=== PATIENT | male | born 1960 | race Caucasian/White ===

== ENCOUNTER 2024-07-17 17:10 | Inpatient (IN) | payer MEDICARE, SELFPAY ==
[2024-07-17 17:11] VITALS: BP 146/91; PULSE 90; RESP 18; TEMP 37.4; O2SAT 97
--- NOTE | 2024-07-17 18:06 | ED.C_ITS ---
HPI - Psych General: Chief Complaint: Psychiatric Symptoms Stated Complaint: 96 Hold Time Seen by Provider: 07/17/24 17:12 History of Present Illness: This patient is a 63-year-old white male who was brought in by law enforcement with a 96-hour hold. Patient is from [facility]. I did review the affidavits and the court order. There were several affidavits filled out from police officers who had been called several times for him disturbing the peace. He had been making strange statements. Stated frequently that he is the word of God. They have also noted strange behaviors such as him following children around and at 1 point he yelled at mother and her children as she was walking out of the court house. He has also been seen rolling around in a barrel. Patient states he is not suicidal or homicidal. Patient is not being cooperative. He will not allow his blood to be drawn. He is adamant that he wants to see the paperwork. We did provide him with the court order and the affidavits minus the names on the affidavits. Associated symptoms: Reports delusions Review of Systems General: Reports: ROS unobtainable due to mental status Physical Exam Const: COMMON NORMALS: no acute distress, patient oriented x3 and no limitations GENERAL APPEARANCE: comfortable HENMT: COMMON NORMALS: normocephalic, atraumatic and oropharynx normal HEAD & SCALP: normal to inspection, normocephalic and atraumatic FACE & SINUS: normal facial exam Eye: COMMON NORMALS: Equal, round and reactive pupils present, EOMs intact bilaterally and conjunctivae normal GENERAL EYE: appearance normal, both eyes and all related structures CONJUNCTIVA: Yes conjunctivae normal PUPIL: Yes Equal, round and reactive pupils present Neck/C-Spine: COMMON NORMALS: supple and no JVD Chest: COMMONS NORMALS: normal inspection of the chest Resp: COMMON NORMALS: normal respiratory effort and clear to auscultation bilaterally AUSCULTATION: clear to auscultation bilaterally Cardio: COMMON NORMALS: no JVD, regular rate, regular rhythm, No gallops present (Cardio), No murmurs present (Cardio) and No rub (Cardio) RATE: regular rate RHYTHM: regular rhythm GI: COMMON NORMALS: Normal to inspection, nondistended, normoactive bowel sounds present, Soft to palpation and non-tender AUSCULTATION: Yes normoactive bowel sounds PALPATION: Yes Soft to palpation : COMMON NORMALS: Yes no CVA tenderness BLADDER/KIDNEY EXAM: Yes no CVA tenderness Back/Pelvis: COMMON NORMALS: no CVA tenderness and thoracic and lumbar spine normal to inspection Extremity: COMMON NORMALS: normal to inspection Neuro: COMMON NORMALS: patient oriented x3 and CN's II-XII intact bilaterally Psych: COMMON NORMALS: mental status grossly normal and Normal thought process present ATTITUDE: Yes uncooperative ACTIVITY/MOTOR BEHAVIOR: Yes hyperactivity SPEECH: Yes excessive MOOD & AFFECT: Yes irritable THOUGHT PROCESS: Normal thought process present THOUGHT CONTENT: No Suicidality present, No Homicidality present and Yes delusions ATTENTION/CONCENTRATION: Yes attention grossly intact MEMORY/COGNITION: Yes memory grossly intact INSIGHT: Limited insight present (Psych) JUDGEMENT: Limited judgement present (Psych) Skin: COMMON NORMALS: no rashes or lesions noted, turgor normal and no jaundice GENERAL SKIN EXAM: no rashes or lesions noted and turgor normal Course Vital Signs: Vital signs: Vital Signs Temperature 99.3 F 07/17/24 17:11 Pulse Rate 90 07/17/24 17:11 Respiratory Rate 18 07/17/24 17:11 Blood Pressure 146/91 07/17/24 17:11 Pulse Oximetry 97 07/17/24 17:11 MDM - Psych Medical Decision Making I discussed this case with Dr. Soni, psychiatrist. He was okay with just admitting to the floor at this point and they can obtain the laboratory workup of therapy will not allow us to get the blood down here. Patient continues to refuse blood draw. Patient will be sent to the Neuropsych Unit shortly. He is stable. No radiology studies performed this visit Discharge Plan Discharge Patient Disposition: Admitted As Inpatient Clinical Impression: Acute psychosis Condition: Stable Coding Level of Care Code ED Housekeeping Aid for Hernesto Ram
[2024-07-17 18:07] LABS: Amphetamines Screen Urine Negative (Negative); Barbiturates Screen Urine Negative (Negative); Benzodiazepines Screen Urine Negative (Negative); Cocaine Screen Urine Negative (Negative); Opiate Screen Urine Negative (Negative); PCP Screen Urine Negative (Negative); THC Screen Urine Positive (Negative)
[2024-07-17 18:29] VITALS: BP 146/91; PULSE 90; O2SAT 97
--- NOTE | 2024-07-17 18:29 | PC.NURSE ---
THIS NURSE UNABLE TO ASSESS. PT REFUSING TO ANSWER QUESTIONS OR SPEAK TO NURSE.
--- NOTE | 2024-07-17 18:30 | PC.NURSE ---
PER DR. ESCOBAR PT TO COME TO UNIT WITHOUT LABS DRAWN.
[2024-07-17 18:50] VITALS: BP 126/81; PULSE 85; RESP 17; TEMP 36.5; O2SAT 96
[2024-07-17 19:59] VITALS: BP 136/80; PULSE 79; RESP 18; TEMP 36.4; O2SAT 98
[2024-07-18 04:12] VITALS: BP 117/64; PULSE 82; RESP 22; O2SAT 100
--- NOTE | 2024-07-18 07:56 | PC.NURSE ---
Morning assessment During morning assessment, patient denies Si, HI, AVH, depression, and anxiety. Patient's speech is pressured and rambling. Patient is exhibiting paranoia and muslim delusions. Patient says that he is going to change his name to The Word of God . He also referenced the show, The Big Bang Theory and when the girl sings The adrián song to Gino, purr purr purr can be spelled pir which is RIP backwards and PIR indicates that somebody is not really but that they are in the afterworld.
[2024-07-18 14:00] VITALS: BP 115/58; PULSE 100; RESP 18; TEMP 37; O2SAT 95
--- NOTE | 2024-07-18 14:55 | W.PM.NPUH&PS ---
Providers/Chief Complaint Admitting Physician: Grover Soni MD Chief Complaint: 96 Hold [facility] NPU History of Present Illness Ehsan Shaw is a 63 year old male who presented to the emergency department at [facility] brought in by law enforcement on a 96-hour hold with multiple affidavits filed in [facility]. These affidavits were reviewed by the contract technical writer of this note. Patient was admitted to the neuropsychiatric unit for further evaluation and treatment. The affidavits report that the patient is had numerous complaints against him regarding aggressive behavior towards children and various parents while reporting that he was the parent of all these children. He had also made a statement stating that he was the word of God and was God and flash on earth along with being the Holy Spirit and ghost. Furthermore, the patient had been disrupting others and was seen on video jumping and running into a barrel roll in the ground. The patient had apparently stated to others that they were not real and states to others that he is a God. Patient was a poor historian but stated that he was allergic to all antipsychotic medications and was here to write all of the wrongs committed against him. Patient had described having special zamarripa and abilities. He had refused to answer any questions regarding his past history or any previous hospitalizations. He had reported that he was working on a plan that would prove that he was God and had been searching through the the Bible while writing incessantly on paper. Psychiatric history: Unknown, he had reported having previously been on antipsychotics. Medical history: None reported Allergies: No known drug allergies Substance abuse history: None reported Legal history: Unknown history: None Current medications: None Family psychiatric history: Unknown Social history: He did not report being . He had refused answer any questions regarding whether he had children or where he was born. He had reported his previous whereabouts as being in [facility]. Meds NPU Home Medications ?Medication ?Instructions ?Recorded ?Confirmed ?Last Taken ?Type No Known Home Medications 07/17/24 07/17/24 Unknown History Mental Status Exam MSE Comments: Healthy young male with poor hygiene and normal gait with significant psychomotor agitation present. There is no evidence of any abnormal involuntary motor movements, tics, or tremors appreciated. His speech was steady with normal rate and volume and increase in productivity. His mood was described as great. His affect appeared euphoric and elevated. There was the presence of prolixity. He minimized suicidal or homicidal ideation. He was grandiose, with expansive delusions including believing he was God. He did not answer to his whereabouts, date, month or year. He did not appear to be responding to internal stimuli. Insight is impaired, Judgment impaired, Impulse control poor. Vitals/I&O/Wt Last Vital Signs Temp 98.6 F 07/18/24 14:00 Pulse 100 07/18/24 14:00 Resp 18 07/18/24 14:00 BP 115/58 07/18/24 14:00 Pulse Ox 95 07/18/24 14:00 O2 Del Method Room Air 07/17/24 18:51 A&P Assessment and plan (1) Acute psychosis: (2) Mojgan: Plan 63-year-old male presents with grandiosity and reported sleep disturbance with previous experience with antipsychotics currently refusing all medications and all labs as well. He will continue to require involuntary hospitalization with significant problems reported in his home environment according to multiple affidavits supporting need for treatment and evaluation. 1. Klonopin prn for sleep disturbance 2. Filed 21 day paperwork for extended stay today as patient will likely require forced medications and is refusing treatment at this time. 3. Haldol/zyprexa for agitation. 4. Consider [place] for mojgan. PDMP PDMP Reviewed: Not Reviewed Involuntary Hold Information Hold Status: Legal Status: 96 Hour Hold Date/Time Hold Expires: 07/23/24 @1712 Attestations NPU Medical Necessity Statement*: Inpatient hospitalization is medically necessary and deemed to ?be ?the clinically appropriate intervention ?at this time.? We will monitor/initiate medications and make changes as indicated.? The patient will be hospitalized for at least two midnights. The patient?s likely length of stay 7-10 days. Coding Level of Care Code Acute Code for Chg Fwd Diagnoses Acute psychosis F23 [place]jgan F30.9
[2024-07-18 20:27] VITALS: BP 104/64; PULSE 89; RESP 18; TEMP 36.7; O2SAT 97
--- NOTE | 2024-07-18 20:27 | PC.NURSE ---
Pt. just got off the phone with a police station stating he needed the police to come pick him up that has been placed on an illegal 96 hr hold and the [employer] band was part of this. Pt. is talking about Joey Galvan off of [address]. Pt. is not really making any since.
[2024-07-19 06:00] VITALS: BP 125/76; PULSE 74; RESP 19; TEMP 36.4; O2SAT 97
[2024-07-19 14:00] VITALS: BP 100/61; PULSE 85; RESP 18; TEMP 36.5; O2SAT 96
--- NOTE | 2024-07-19 14:26 | P.NPUPN_ITS ---
Subjective NPU Subjective: Patient presented today reporting that he is doing fine. He spent most of the time talking about very hyper islam subjects like him being God and having special abilities excetra. He was confused has to why he was still in the hospital and we discussed the importance of him taking medication to assist his condition which he denied having 1. So we spent the remainder of the time explaining the 21-day process of his ability to have an supervisor type bar and segment represent him and his 21-day hold hearing on Monday but he reported a plan to be his own [place]. You did not want to consider medications and denied any problems. Mental Status Exam 2 MSE Comments: This is an overweight versus obese white male in hospital scrubs with limited grooming and some eye contact. No abnormal movements except for mild psychomotor agitation. Cooperative with exam with mild to moderate distress. Speech was increased rate and volume. Mood described as fine affect irritable and agitated. Thought process linear but at times disorganized. Thought content: Patient denied suicidal or homicidal ideation, there were no delusions reported but clear attending to internal stimuli occurred, she exhibited paranoid, persecutory hyperreligious delusions, he denied auditory or visual hallucinations but indicated that there are ways that he obtain extra corporal voices and interactions. Attention and concentration were limited and memory appeared unreliable but none were formally tested. He is alert and oriented x 3. Insight, judgment and impulse control are all impaired. Vitals/I&O/Wt Last Vital Signs Temp 97.5 F L 07/19/24 06:00 Pulse 74 07/19/24 06:00 Resp 19 H 07/19/24 06:00 BP 125/76 07/19/24 06:00 Pulse Ox 97 07/19/24 06:00 O2 Del Method Room Air 07/19/24 06:00 A&P Assessment and plan (1) Acute psychosis: (2) Ruthy: Plan 63-year-old male presents with grandiosity and reported sleep disturbance with previous experience with antipsychotics currently refusing all medications and all labs as well. He will continue to require involuntary hospitalization with significant problems reported in his home environment according to multiple affidavits supporting need for treatment and evaluation. 1. Klonopin prn for sleep disturbance 2. Filed 21 day paperwork for extended stay today as patient will likely require forced medications and is refusing treatment at this time. 3. Haldol/zyprexa for agitation. 4. Consider [place] for ruthy. PDMP PDMP Reviewed: Not Reviewed Involuntary Hold Information Hold Status: Legal Status: 96 Hour Hold Date/Time Hold Expires: 07/23/24 1481 Attestations NPU Medical Necessity Statement*: Inpatient hospitalization is medically necessary and deemed to ?be ?the clinically appropriate intervention ?at this time.? We will monitor/initiate medications and make changes as indicated.? The patient will be hospitalized for at least two midnights. The patient?s likely length of stay 7-10 days. Coding Level of Care Code Acute Code for Chg Fwd Diagnoses Acute psychosis F23 Ruthy F30.9
--- NOTE | 2024-07-19 15:05 | PC.NURSE ---
Group Disruption Patient disruptive during 1400 group. Patient was interruptive, saying things that were inappropriate as well as triggering to other patients. Patient used the N word and referred to another patient as a crackhead .
--- NOTE | 2024-07-19 18:11 | PC.NURSE ---
Patient came to the nurses station with complaints of another patient invading his privacy. Patient's voice is raised. Patient demanding that staff keep him away from him. Redirected and educated second patient. Educated patient about his ability to walk away and also to go to his room.
[2024-07-19 21:52] VITALS: BP 121/65; PULSE 95; RESP 18; TEMP 36.7; O2SAT 96
[2024-07-20 06:00] VITALS: RESP 17
--- NOTE | 2024-07-20 08:51 | PC.NURSE ---
Morning assessment Cooperative during morning assessment. Patient calm and appropriate. Patient denies any needs besides wanting to be discharged from the unit.
[2024-07-20 14:00] VITALS: BP 109/64; PULSE 79; RESP 16; TEMP 36.8; O2SAT 96
[2024-07-20 21:15] VITALS: BP 102/66; PULSE 72; RESP 18; TEMP 36.3; O2SAT 98
--- NOTE | 2024-07-20 22:00 | P.NPUPN_ITS ---
Subjective NPU Subjective: Patient presented today reporting that he is doing fine but continued to have significant grandiose, hyperreligious, paranoid and persecutory delusions per staff reports and direct observation. He had written all these words on the chalk board and had delusions of reference related to things close and distant from him. He continued to lack insight and what was going on and review medications. We discussed him having a hearing on Monday and he reports a plan to represent himself. Mental Status Exam MSE Comments: This is an overweight versus obese white male in hospital scrubs with limited grooming and some eye contact. No abnormal movements except for mild psychomotor agitation. Cooperative with exam with mild to moderate distress. Speech was increased rate and volume. Mood described as fine affect irritable and agitated. Thought process linear but at times disorganized. Thought content: Patient denied suicidal or homicidal ideation, there were no delusions reported but clear attending to internal stimuli occurred, he exhibited paranoid, persecutory hyperreligious delusions, he denied auditory or visual hallucinations but indicated that there are ways that he obtain extra corporal voices and interactions. Attention and concentration were limited and memory appeared unreliable but none were formally tested. He is alert and oriented x 3. Insight, judgment and impulse control are all impaired. Vitals/I&O/Wt Last Vital Signs Temp 97.4 F L 07/20/24 21:15 Pulse 72 07/20/24 21:15 Resp 18 07/20/24 21:15 BP 102/66 07/20/24 21:15 Pulse Ox 98 07/20/24 21:15 O2 Del Method Room Air 07/20/24 21:15 Weight last 48 hrs Weight 105.8 kg A&P Assessment and plan (1) Acute psychosis: (2) Ruthy: Plan 63-year-old male presents with grandiosity and reported sleep disturbance with previous experience with antipsychotics currently refusing all medications and all labs as well. He will continue to require involuntary hospitalization with significant problems reported in his home environment according to multiple affidavits supporting need for treatment and evaluation. 1. Klonopin prn for sleep disturbance 2. Filed 21 day paperwork for extended stay today as patient will likely require forced medications and is refusing treatment at this time. 3. Haldol/zyprexa for agitation. 4. Consider [place] for ruthy. But likely will need either Invega or Abilify secondary to his resistance to treatment. It would be able to be placed on a long-acting injectable. PDMP PDMP Reviewed: Not Reviewed Involuntary Hold Information Hold Status: Legal Status: 96 Hour Hold Date/Time Hold Expires: 07/23/24 8543 Attestations NPU Medical Necessity Statement*: Inpatient hospitalization is medically necessary and?the clinically appropriate intervention at this time.? We will monitor/initiate medications and make changes as indicated.? The patient?s likely length of stay 7-10 days. Coding Level of Care Code Acute Code for Chg Fwd Diagnoses Acute psychosis F23 Ruthy F30.9
--- NOTE | 2024-07-21 06:31 | PC.NURSE ---
vs not completed per charge nurse resp 17
--- NOTE | 2024-07-21 08:23 | P.NPUPN_ITS ---
Subjective NPU Subjective: Patient presented today reporting that he is unhappy with the situation. Specifically he is feeling upset about the 21-day hold and denied there being any reason why he should still be here. When this promotion writer attempted to discuss his ID is/delusions of reference that he recounted on the chalk board he reported that this promotion writer was angry about the knowledge that he had that this promotion writer was not aware of. He argued about the date of the hearing. Then he actually asked that the hearing was going to be tomorrow and not Monday as he stated. We discussed him having an opportunity to express concerns about having to stay with the horticultural farmer who will decide whether he stays or goes. He refused antipsychotic medication. Mental Status Exam MSE Comments: This is an overweight versus obese white male in hospital scrubs with limited grooming and some eye contact. No abnormal movements except for mild psychomotor agitation. Cooperative with exam with mild to moderate distress. Speech was increased rate and volume. Mood described as fine affect irritable and agitated. Thought process linear but at times disorganized. Thought content: Patient denied suicidal or homicidal ideation, there were no delusions reported but clear attending to internal stimuli occurred, he exhibited paranoid, persecutory hyperreligious delusions, he denied auditory or visual hallucinations but indicated that there are ways that he obtain extra corporal voices and interactions. Attention and concentration were limited and memory appeared unreliable but none were formally tested. He is alert and oriented x 3. Insight, judgment and impulse control are all impaired. Vitals/I&O/Wt Last Vital Signs Temp 97.4 F L 07/20/24 21:15 Pulse 72 07/20/24 21:15 Resp 18 07/20/24 21:15 BP 102/66 07/20/24 21:15 Pulse Ox 98 07/20/24 21:15 O2 Del Method Room Air 07/20/24 21:15 Weight last 48 hrs Weight 105.8 kg A&P Assessment and plan (1) Acute psychosis: (2) Ruthy: Plan 63-year-old male presents with grandiosity and reported sleep disturbance with previous experience with antipsychotics currently refusing all medications and all labs as well. He will continue to require involuntary hospitalization with significant problems reported in his home environment according to multiple affidavits supporting need for treatment and evaluation. 1. Klonopin prn for sleep disturbance 2. Filed 21 day paperwork for extended stay today as patient will likely require forced medications and is refusing treatment at this time. 3. Haldol/zyprexa for agitation. 4. Consider [place] for ruthy. But likely will need either Invega or Abilify secondary to his resistance to treatment. It would be able to be placed on a long-acting injectable. PDMP PDMP Reviewed: Not Reviewed Involuntary Hold Information Hold Status: Legal Status: 96 Hour Hold Date/Time Hold Expires: 07/23/24 5833 Attestations NPU Medical Necessity Statement*: Inpatient hospitalization is medically necessary and?the clinically appropriate intervention at this time.? We will monitor/initiate medications and make changes as indicated.? The patient?s likely length of stay 7-10 days. Coding Level of Care Code Acute Code for Chg Fwd Diagnoses Acute psychosis F23 Ruthy F30.9
[2024-07-21 09:27] VITALS: BP 108/71; PULSE 87; RESP 16; TEMP 36.4; O2SAT 97
--- NOTE | 2024-07-21 12:17 | PC.NURSE ---
Dr. Hassan gave a v/o for pt to shave with supervision.
[2024-07-21 14:00] VITALS: BP 103/70; PULSE 87; RESP 16; TEMP 36.3; O2SAT 97
[2024-07-21 22:00] VITALS: BP 130/82; PULSE 83; RESP 18; TEMP 36.5; O2SAT 93
--- NOTE | 2024-07-22 06:40 | PC.NURSE ---
vs not completed per charge nurse resp 17
--- NOTE | 2024-07-22 09:13 | PC.NURSE ---
Pt states that he slept good last night. maintenance supervisor 2nd shift reports him only sleeping 2.5 hours. He is rating his anxiety and depression a 0/10. He denies SI or HI. He endorses hearing a train last night and he is hearing a clicking sound in a room that we currently have locked on the unit. I assured him that it was a vent clicking when the air is on and he does not accept this fact and thinks it is something else. He is to appear in [address]. He is reporting his back pain is a 2/10, it's just stiff and aching he says.
[2024-07-22 14:00] VITALS: BP 117/72; PULSE 94; RESP 17; TEMP 36.4; O2SAT 97
--- NOTE | 2024-07-22 18:05 | P.NPUPN_ITS ---
Subjective NPU Subjective: Patient presented today reporting that things are going okay. He is very upset and frustrated that this program writer proceeded forward with the 21-day hold hearing and that he was placed on continuous hold and not released pending the trial. He was reporting that this program writer was just mad because he is God and flesh and that he has special zamarripa. He continues to be quite irritable and appearing to be manic per staff reports and direct observation. He continued to endorse a significant frustration about being in the hospital and denied any need for medication and was refusing medication. Mental Status Exam MSE Comments: This is an overweight versus obese white male in hospital scrubs with limited grooming and some eye contact. No abnormal movements except for mild psychomotor agitation. Cooperative with exam with mild to moderate distress. Speech was increased rate and volume. Mood described as fine affect irritable and agitated. Thought process linear but at times disorganized. Thought content: Patient denied suicidal or homicidal ideation, there were no delusions reported but clear attending to internal stimuli occurred, he exhibited paranoid, persecutory hyperreligious delusions, he denied auditory or visual hallucinations but indicated that there are ways that he obtain extra corporal voices and interactions. Attention and concentration were limited and memory ap peared unreliable but none were formally tested. He is alert and oriented x 3. Insight, judgment and impulse control are all impaired. Vitals/I&O/Wt Last Vital Signs Temp 97.9 F 07/22/24 20:11 Pulse 98 07/22/24 20:11 Resp 16 07/22/24 20:11 BP 100/67 07/22/24 20:11 Pulse Ox 96 07/22/24 20:11 O2 Del Method Room Air 07/22/24 20:11 A&P Assessment and plan (1) Acute psychosis: (2) Ruthy: Plan 63-year-old male presents with grandiosity and reported sleep disturbance with previous experience with antipsychotics currently refusing all medications and all labs as well. He will continue to require involuntary hospitalization with significant problems reported in his home environment according to multiple affidavits supporting need for treatment and evaluation. 1. Klonopin prn for sleep disturbance 2. Filed 21 day paperwork for extended stay today as patient will likely require forced medications and is refusing treatment at this time. 3. Haldol/zyprexa for agitation. 4. Consider [place] for ruthy. But likely will need either Invega or Abilify secondary to his resistance to treatment. It would be able to be placed on a long-acting injectable. 5. He had his 21-day hold hearing and he was placed on a hold allowing for involuntary treatment but he demanded a jury trial and so that process is moving forward and likely will not happen till sometime next week at the earliest. Until then we have given permission to treat involuntarily and we will move forward with that tomorrow. PDMP PDMP Reviewed: Not Reviewed Involuntary Hold Information Hold Status: Legal Status: 96 Hour Hold Date/Time Hold Expires: 07/23/24 8892 Attestations NPU Medical Necessity Statement*: Inpatient hospitalization is medically necessary and?the clinically appropriate intervention at this time.? We will monitor/initiate medications and make changes as indicated.? The patient?s likely length of stay 7-10 days. Coding Level of Care Code Acute Code for Chg Fwd Diagnoses Acute psychosis F23 Ruthy F30.9
[2024-07-22 20:11] VITALS: BP 100/67; PULSE 98; RESP 16; TEMP 36.6; O2SAT 96
[2024-07-23 06:00] VITALS: BP 89/53; PULSE 78; RESP 18; TEMP 36.6; O2SAT 96
[2024-07-23 14:00] VITALS: PULSE 89; RESP 17; TEMP 36.8; O2SAT 96
--- NOTE | 2024-07-23 15:33 | PC.NURSE ---
Patient assessment completed at 1130. Patient denies SI/Hi/avh, anxiety and intrusive thoughts. He stated to this RN that he was dating Fide a cartoon character from the [employer]. He states that he dated the real character that the cartoon is based off of. We discuss goals and attending group. He states that the therapist embarassed him when he was wearing his underwear on his head because he identiified with spiderman. Social norms discussed and patient encouraged to attend group.
--- NOTE | 2024-07-23 15:40 | PC.NURSE ---
PATIENTS BLOOD PRESSURE DID NOT TAKE THE FIRST TIME, OFFERED TO DO IT IN HIS OTHER ARM AND HE REFUSED AND WOULD NOT LET THIS MONUMENTAL STONEMASON TAKE THE BLOOD PRESSURE. CHARGE NURSE NOTIFIED.
[2024-07-23] MEDS: ziprasidone 20 mg/mL SDV IM (15:58)
[2024-07-23] MEDS: water for injection-sterile 10 ML (15:59)
[2024-07-23] MEDS: ARIPiprazole 30 mg Tablet 15 MG PO (16:15)
--- NOTE | 2024-07-23 17:49 | P.NPUPN_ITS ---
Subjective NPU Subjective: Patient presented today reporting that he is fine and needs no medication. He initially refused medication and was going to getting injections from the forced medication protocol. But after he was informed that he would get a shot he changed his mind and took the Abilify 15 mg p.o. daily. He continued to report being allergic to all antipsychotics. He identified that it was Haldol and things that ended in done. Mental Status Exam MSE Comments: This is an overweight versus obese white male in hospital scrubs with limited grooming and some eye contact. No abnormal movements except for mild psychomotor agitation. Cooperative with exam with mild to moderate distress. Speech was increased rate and volume. Mood described as fine affect irritable and agitated. Thought process linear but at times disorganized. Thought content: Patient denied suicidal or homicidal ideation, there were no delusions reported but clear attending to internal stimuli occurred, he exhibited paranoi d, persecutory hyperreligious delusions, he denied auditory or visual hallucinations but indicated that there are ways that he obtain extra corporal voices and interactions. Attention and concentration were limited and memory appeared unreliable but none were formally tested. He is alert and oriented x 3. Insight, judgment and impulse control are all impaired. Vitals/I&O/Wt Last Vital Signs Temp 97.3 F L 07/23/24 22:00 Pulse 80 07/23/24 22:00 Resp 18 07/23/24 22:00 BP 122/79 07/23/24 22:00 Pulse Ox 96 07/23/24 22:00 O2 Del Method Room Air 07/23/24 06:00 A&P Assessment and plan (1) Acute psychosis: (2) Ruthy: Plan 63-year-old male presents with grandiosity and reported sleep disturbance with previous experience with antipsychotics currently refusing all medications and all labs as well. He will continue to require involuntary hospitalization with significant problems reported in his home environment according to multiple affidavits supporting need for treatment and evaluation. 1. Klonopin prn for sleep disturbance 2. Start forced medicine protocol will give 20 mg of Geodon IM for p.o. refusal of Invega 6 mg p.o. daily. Which was started today. 3. Haldol/zyprexa for agitation. 4. Consider [place] for ruthy. But likely will need either Invega or Abilify secondary to his resistance to treatment. It would be able to be placed on a long-acting injectable. 5. He had his 21-day hold hearing and he was placed on a hold allowing for involuntary treatment but he demanded a jury trial and so that process is moving forward and likely will not happen till sometime next week at the earliest. Until then we have given permission to treat involuntarily and we will move forward with that tomorrow. PDMP PDMP Reviewed: Not Reviewed Involuntary Hold Information Hold Status: Legal Status: 96 Hour Hold Date/Time Hold Expires: Court ordered administrative hold Attestations NPU Medical Necessity Statement*: Inpatient hospitalization is medically necessary and?the clinically appropriate intervention at this time.? We will monitor/initiate medications and make changes as indicated.? The patient?s likely length of stay 7-10 days. Coding Level of Care Code Acute Code for Chg Fwd Diagnoses Acute psychosis F23 Ruthy F30.9
[2024-07-23 22:00] VITALS: BP 122/79; PULSE 80; RESP 18; TEMP 36.3; O2SAT 96
[2024-07-24 06:00] VITALS: BP 105/58; PULSE 63; RESP 16; TEMP 36.9; O2SAT 97
[2024-07-24] MEDS: ARIPiprazole 30 mg Tablet 15 MG PO (09:02)
[2024-07-24 14:00] VITALS: BP 142/83; PULSE 77; RESP 16; TEMP 36.4; O2SAT 98
--- NOTE | 2024-07-24 18:30 | P.NPUPN_ITS ---
Subjective NPU Subjective: Patient presented today reporting that things were fine. He initially refused his Abilify this morning. We had a discussion about the fact that he is on forced medication protocol so if he does not take the Abilify we will give an injection. He ultimately took the Abilify and was given his second batch of information on the aripiprazole. He once again lobbied for us to prescribe him marijuana instead. No current reports of side effects. Mental Status Exam MSE Comments: This is an overweight versus obese white male in hospital scrubs with limited grooming and some eye contact. No abnormal movements except for mild psychomotor agitation. Cooperative with exam with mild to moderate distress. Speech was increased rate and volume. Mood described as fine affect irritable and agitated. Thought process linear but at times disorganized. Thought content: Patient denied suicidal or homicidal ideation, there were no delusions reported but clear attending to internal stimuli occurred, he exhibited paranoid, persecutory hyperreligious delusions, he denied auditory or visual hallucinations but indicated that there are ways that he obtain extra corporal voices and interactions. Attention and concentration were limited and memory appeared unreliable but none were formally tested. He is alert and oriented x 3. Insight, judgment and impulse control are all impaired. Vitals/I&O/Wt Last Vital Signs Temp 97.3 F L 07/24/24 21:08 Pulse 80 07/24/24 21:08 Resp 18 07/24/24 21:08 BP 109/70 07/24/24 21:08 Pulse Ox 96 07/24/24 21:08 O2 Del Method Room Air 07/24/24 21:08 A&P Assessment and plan (1) Acute psychosis: (2) Ruthy: Plan 63-year-old male presents with grandiosity and reported sleep disturbance with previous experience with antipsychotics currently refusing all medications and all labs as well. He will continue to require involuntary hospitalization with significant problems reported in his home environment according to multiple affidavits supporting need for treatment and evaluation. 1. Klonopin prn for sleep disturbance 2. Start forced medicine protocol will give 20 mg of Geodon IM for p.o. refusal of Abilify 15 mg p.o. daily. Which was started yesterday. 3. Haldol/zyprexa for agitation. 4. Consider [place] for ruthy. Abilify was started so he would be able to be placed on a long-acting injectable. And at that point with cooperation maybe add the lithium. 5. He had his 21-day hold hearing and he was placed on a hold allowing for involuntary treatment but he demanded a jury trial and so that process is moving forward and likely will not happen till sometime next week at the earliest. Until then we have given permission to treat involuntarily. PDMP PDMP Reviewed: Not Reviewed Involuntary Hold Information Hold Status: Legal Status: 96 Hour Hold Date/Time Hold Expires: Court ordered administrative hold Attestations NPU Medical Necessity Statement*: Inpatient hospitalization is medically necessary and?the clinically appropriate intervention at this time.? We will monitor/initiate medications and make changes as indicated.? The patient?s likely length of stay 7-10 days. Coding Level of Care Code Acute Code for Chg Fwd Diagnoses Acute psychosis F23 Ruthy F30.9
[2024-07-24 21:08] VITALS: BP 109/70; PULSE 80; RESP 18; TEMP 36.3; O2SAT 96
[2024-07-25 06:00] VITALS: BP 145/84; PULSE 74; RESP 118; TEMP 36.3; O2SAT 96
[2024-07-25 14:00] VITALS: BP 105/64; PULSE 69; RESP 16; TEMP 36.1; O2SAT 96
[2024-07-25] MEDS: ARIPiprazole 30 mg Tablet 15 MG PO (14:37)
--- NOTE | 2024-07-25 14:39 | PC.NURSE ---
Pt. refused am medication this am. asked signee to let pt. know that if he did not take the PO medication form that an injection would be the alternative. Pt. did comply at that time and took the PO form of medication .
--- NOTE | 2024-07-25 17:52 | W.PM.NPUPNS ---
Subjective NPU Subjective: Patient presented today reporting that he is fine. He continued the lobby to be discharged and continued his same rant that he is going to pray to God for forgiveness for this commercial underwriter for I know not what you do which is a statement he has made multiple times. We discussed that he is on a forced medication protocol and that if he refuses the medication he will get an injection. He did not report any side effects of the medication. He continues to be quite delusional per staff reports and direct observation. Mental Status Exam MSE Comments: This is an overweight versus obese white male in hospital scrubs with limited grooming and some eye contact. No abnormal movements except for mild psychomotor agitation. Cooperative with exam with mild to moderate distress. Speech was increased rate and volume. Mood described as fine affect irritable and agitated. Thought process linear but at times disorganized. Thought content: Patient denied suicidal or homicidal ideation, there were no delusions reported but clear attending to internal stimuli occurred, he exhibited paranoid, persecutory hyperreligious delusions, he denied auditory or visual hallucinations but indicated that there are ways that he obtain extra corporal voices and interactions. Attention and concentration were limited and memory appeared unreliable but none were formally tested. He is alert and oriented x 3. Insight, judgment and impulse control are all impaired. Vitals/I&O/Wt Last Vital Signs Temp 96.9 F L 07/25/24 14:00 Pulse 69 07/25/24 14:00 Resp 16 07/25/24 14:00 BP 105/64 07/25/24 14:00 Pulse Ox 96 07/25/24 14:00 O2 Del Method Room Air 07/25/24 06:00 A&P Assessment and plan (1) Acute psychosis: (2) Ruthy: Plan 63-year-old male presents with grandiosity and reported sleep disturbance with previous experience with antipsychotics currently refusing all medications and all labs as well. He will continue to require involuntary hospitalization with significant problems reported in his home environment according to multiple affidavits supporting need for treatment and evaluation. 1. Klonopin prn for sleep disturbance 2. Start forced medicine protocol will give 20 mg of Geodon IM for p.o. refusal of Abilify 15 mg p.o. daily. He continues to refuse his medication and need a second approach to get the pill taken. Starting tomorrow we will have an injection for p.o. refusal. 3. Haldol/zyprexa for agitation. 4. Consider [place] for ruthy. Abilify was started so he would be able to be placed on a long-acting injectable. And at that point with cooperation maybe add the lithium. 5. He had his 21-day hold hearing and he was placed on a hold allowing for involuntary treatment but he demanded a jury trial and so that process is moving forward and likely will not happen till sometime next week at the earliest. Until then we have given permission to treat involuntarily. Patient had a hearing that was at 11 AM today and in that hearing Fur Glosser Ivan resided and had to refuse herself because she is on the board of [facility] and so we will still be awaiting a logistics associate of being named and a jury being selected. PDMP PDMP Reviewed: Not Reviewed Involuntary Hold Information Hold Status: Legal Status: 96 Hour Hold Date/Time Hold Expires: Court ordered administrative hold Attestations NPU Medical Necessity Statement*: Inpatient hospitalization is medically necessary and?the clinically appropriate intervention at this time.? We will monitor/initiate medications and make changes as indicated.? The patient?s likely length of stay 7-10 days. Coding Level of Care Code Acute Code for [facility] Fwd Diagnoses Acute psychosis F23 Ruthy F30.9
[2024-07-25 20:39] VITALS: BP 113/66; PULSE 98; RESP 18; TEMP 36.3; O2SAT 96
[2024-07-26 06:00] VITALS: BP 97/61; PULSE 72; RESP 18; O2SAT 97
[2024-07-26 14:00] VITALS: BP 109/66; PULSE 72; RESP 16; TEMP 36.7; O2SAT 96
--- NOTE | 2024-07-26 14:47 | PC.NURSE ---
pulp mill team leader reported to staff that patient threw a sterling bag at her during group Discussed with patient and security. Patient states he was pullng weeds and then said heres a sterling bag and tossed an empty sterling bag at the leader. Discussed with patient that throwing of any items at staff is not tolerated and can be construed as viiolence.
--- NOTE | 2024-07-26 15:33 | P.NPUPN_ITS ---
Subjective NPU Subjective: Patient presented today reporting that he is feeling okay. He was less irritable and activated with his delusional thoughts per staff reports and direct observation. He reports feeling okay and again lobby for discharge sooner rather than later. He struggled with the question of whether he felt he was doing better because clearly acknowledging that would be acknowledging that something was available to be better about. He refused to acknowledge any improvement in his mentation though this was noted by both staff and this technical report writer. He denied any specific side effects to the medication though did note that during the time he has been taking the medication he has had a headache occasionally. Mental Status Exam MSE Comments: This is an overweight versus obese white male in hospital scrubs with limited grooming and some eye contact. No abnormal movements except for mild psychomotor agitation. Cooperative with exam with mild to moderate distress. Speech was increased rate and volume. Mood described as fine affect irritable and agitated. Thought process linear but at times disorganized. Thought content: Patient denied suicidal or homicidal ideation, there were no delusions reported but clear attending to internal stimuli occurred, he exhibited paranoid, persecutory hyperreligious delusions, he denied auditory or visual hallucinations but indicated that there are ways that he obtain extra corporal voices and interactions. Attention and concentration were limited and memory appeared unreliable but none were formally tested. He is alert and oriented x 3. Insight, judgment and impulse control are all impaired. Vitals/I&O/Wt Last Vital Signs Temp 97.4 F L 07/25/24 20:39 Pulse 72 07/26/24 06:00 Resp 18 07/26/24 06:00 BP 97/61 07/26/24 06:00 Pulse Ox 97 07/26/24 06:00 O2 Del Method Room Air 07/25/24 06:00 A&P Assessment and plan (1) Acute psychosis: (2) Ruthy: Plan 63-year-old male presents with grandiosity and reported sleep disturbance with previous experience with antipsychotics currently refusing all medications and all labs as well. He will continue to require involuntary hospitalization with significant problems reported in his home environment according to multiple affidavits supporting need for treatment and evaluation. 1. Klonopin prn for sleep disturbance 2. Start forced medicine protocol will give 20 mg of Geodon IM for p.o. refusal of Abilify 15 mg p.o. daily. He continues to refuse his medication and need a second approach to get the pill taken. Starting tomorrow we will have an injection for p.o. refusal. Will likely consider the Abilify Maintena in the next few days. 3. Haldol/zyprexa for agitation. 4. Consider [place] for ruthy. Abilify was started so he would be able to be placed on a long-acting injectable. And at that point with cooperation maybe add the lithium. 5. He had his 21-day hold hearing and he was placed on a hold allowing for involuntary treatment but he demanded a jury trial and so that process is moving forward and likely will not happen till sometime next week at the earliest. Until then we have given permission to treat involuntarily. Patient had a hearing that was at 11 AM today and in that hearing Kitchen Stewardess Ivan resided and had to refuse herself because she is on the board of [facility] and so we will still be awaiting a hose finisher of being named and a jury being selected. PDMP PDMP Reviewed: Not Reviewed Involuntary Hold Information Hold Status: Legal Status: 96 Hour Hold Date/Time Hold Expires: Court ordered administrative hold Attestations NPU Medical Necessity Statement*: Inpatient hospitalization is medically necessary and?the clinically appropriate intervention at this time.? We will monitor/initiate medications and make changes as indicated.? The patient?s likely length of stay 7-10 days. Coding Level of Care Code Acute Code for Chg Fwd Diagnoses Acute psychosis F23 Ruthy F30.9
[2024-07-26 20:25] VITALS: BP 100/64; PULSE 84; RESP 18; TEMP 36.9; O2SAT 96
--- NOTE | 2024-07-27 01:55 | PC.NURSE ---
Pt. just came up to the nurses station asking what the name of the little yellow bird on Cory Galicia's name was. Then pt. remembered the birds name was Noble. Pt. got a chocolate milk and went back to his room.
[2024-07-27 06:00] VITALS: BP 115/79; PULSE 65; RESP 18; O2SAT 96
[2024-07-27] MEDS: ARIPiprazole 30 mg Tablet 15 MG PO (08:58)
[2024-07-27 14:00] VITALS: BP 128/85; PULSE 104; RESP 18; TEMP 36.4; O2SAT 97
--- NOTE | 2024-07-27 19:05 | W.PM.NPUPNS ---
Subjective NPU Subjective: Patient presented today being a bit more vocal about his psychotic thinking than yesterday per staff reports and direct observation. He continues to be less irritable per staff reports and observation however he was very focused on him being a critical call given the christian reality. Endorsed himself is the second coming in saying that in true spiritism people should be done to twice the first time was for Ashish the second time was for him. He then went on a tangential rant about how the P that is in many different things is a call back to him. He denied any clear side effects to the medication. Mental Status Exam MSE Comments: This is an overweight versus obese white male in hospital scrubs with limited grooming and some eye contact. No abnormal movements except for mild psychomotor agitation. Cooperative with exam with mild to moderate distress. Speech was increased rate and volume. Mood described as fine affect irritable and agitated. Thought process linear but at times disorganized. Thought content: Patient denied suicidal or homicidal ideation, there were no delusions reported but clear attending to internal stimuli occurred, he exhibited paranoid, persecutory hyperreligious delusions, he denied auditory or visual hallucinations but indicated that there are ways that he obtain extra corporal voices and interactions. Attention and concentration were limited and memory appeared unreliable but none were formally tested. He is alert and oriented x 3. Insight, judgment and impulse control are all impaired. Vitals/I&O/Wt Last Vital Signs Temp 97.4 F L 07/27/24 19:23 Pulse 104 07/27/24 19:23 Resp 18 07/27/24 19:23 BP 137/79 07/27/24 19:23 Pulse Ox 97 07/27/24 19:23 O2 Del Method Room Air 07/26/24 20:25 Weight last 48 hrs Weight 107.275 kg A&P Assessment and plan (1) Acute psychosis: (2) Ruthy: Plan 63-year-old male presents with grandiosity and reported sleep disturbance with previous experience with antipsychotics currently refusing all medications and all labs as well. He will continue to require involuntary hospitalization with significant problems reported in his home environment according to multiple affidavits supporting need for treatment and evaluation. 1. Klonopin prn for sleep disturbance 2. Start forced medicine protocol will give 20 mg of Geodon IM for p.o. refusal of Abilify 15 mg p.o. daily. He continues to refuse his medication and need a second approach to get the pill taken. Starting tomorrow we will have an injection for p.o. refusal. Will likely consider the Abilify Maintena in the next few days. With signs of improvement we will consider giving Abilify [place] 400 mg IM tomorrow. 3. Haldol/zyprexa for agitation. 4. Consider [place] for ruthy. Abilify was started so he would be able to be placed on a long-acting injectable. And at that point with cooperation maybe add the lithium. 5. He had his 21-day hold hearing and he was placed on a hold allowing for involuntary treatment but he demanded a jury trial and so that process is moving forward and likely will not happen till sometime next week at the earliest. Until then we have given permission to treat involuntarily. Patient had a hearing that was at 11 AM today and in that hearing Education Counselor Ivan resided and had to refuse herself because she is on the board of [facility] and so we will still be awaiting a dental scheduling coordinator of being named and a jury being selected. PDMP PDMP Reviewed: Not Reviewed Involuntary Hold Information Hold Status: Legal Status: 96 Hour Hold Date/Time Hold Expires: Court ordered administrative hold Attestations NPU Medical Necessity Statement*: Inpatient hospitalization is medically necessary and?the clinically appropriate intervention at this time.? We will monitor/initiate medications and make changes as indicated.? The patient?s likely length of stay 6-9 days. Coding Level of Care Code Acute Code for [facility] Fwd Diagnoses Acute psychosis F23 Ruthy F30.9
[2024-07-27 19:23] VITALS: BP 137/79; PULSE 104; RESP 18; TEMP 36.3; O2SAT 97
--- NOTE | 2024-07-28 00:34 | PC.NURSE ---
asking staff about what dr. dahl first name and told staff that he know how works and then started rambling about how he was dressed when he came in to talk to other pts
--- NOTE | 2024-07-28 00:58 | PC.NURSE ---
pt just came to nurse station and told us that he need to speak with the intermint FITTER/WELDER at first day break didnt care if it was a monday or not. charge told him that she would pass it along to the next shift and he said okay and walked back down to the day room
[2024-07-28 05:37] VITALS: BP 109/64; PULSE 82; RESP 16; TEMP 36.5; O2SAT 96
[2024-07-28] MEDS: ARIPiprazole 30 mg Tablet 15 MG PO (08:56)
--- NOTE | 2024-07-28 10:44 | PC.NURSE ---
patient argumentative.
[2024-07-28 14:00] VITALS: BP 100/73; PULSE 84; RESP 16; TEMP 36.5; O2SAT 97
--- NOTE | 2024-07-28 15:51 | P.NPUPN_ITS ---
Subjective NPU Subjective: Patient presented today reporting that he is doing okay. He continues to take his Abilify without needing any urging. We discussed possibly increasing the medication but that we feel the medication has been helpful thus far. He continues to discuss hyperreligious and delusional content with the last persecutory nature per staff reports and direct observation. He continues to report being in the second coming of Ashish and even suggested that now when baptized and people they should be put under water once for Ashish and once for Ehsan/him. He denied any side effects of the medication today. Mental Status Exam MSE Comments: This is an overweight versus obese white male in hospital scrubs with limited grooming and some eye contact. No abnormal movements except for mild psychomotor agitation. Cooperative with exam with mild to moderate distress. Speech was increased rate and volume. Mood described as fine affect irritable and agitated. Thought process linear but at times disorganized. Thought content: Patient denied suicidal or homicidal ideation, there were no delusions reported but clear attending to internal stimuli occurred, he exhibited paranoid, persecutory hyperreligious delusions, he denied auditory or visual hallucinations but indicated that there are ways that he obtain extra corporal voices and interactions. Attention and concentration were limited and memory appeared unreliable but none were formally tested. He is alert and oriented x 3. Insight, judgment and impulse control are all impaired. Vitals/I&O/Wt Last Vital Signs Temp 97.7 F 07/28/24 14:00 Pulse 84 07/28/24 14:00 Resp 16 07/28/24 14:00 BP 100/73 07/28/24 14:00 Pulse Ox 97 07/28/24 14:00 O2 Del Method Room Air 07/28/24 14:00 Weight last 48 hrs Weight 107.275 kg A&P Assessment and plan (1) Acute psychosis: (2) Mojgan: Plan 63-year-old male presents with grandiosity and reported sleep disturbance with previous experience with antipsychotics currently refusing all medications and all labs as well. He will continue to require involuntary hospitalization with significant problems reported in his home environment according to multiple affidavits supporting need for treatment and evaluation. 1. Klonopin prn for sleep disturbance 2. Start forced medicine protocol will give 20 mg of Geodon IM for p.o. refusal of Abilify 15 mg p.o. daily. He continues to refuse his medication and need a s econd approach to get the pill taken. Starting tomorrow we will have an injection for p.o. refusal. Will likely consider the Abilify Maintena in the next few days. With signs of improvement we will consider giving Abilify Maintena 400 mg IM tomorrow. Increase Abilify to 20 mg p.o. daily. 3. Haldol/zyprexa for agitation. 4. Consider [place] for mojgan. Abilify was started so he would be able to be placed on a long-acting injectable. And at that point with cooperation maybe add the lithium. 5. He had his 21-day hold hearing and he was placed on a hold allowing for involuntary treatment but he demanded a jury trial and so that process is moving forward and likely will not happen till sometime next week at the earliest. Until then we have given permission to treat involuntarily. Patient had a hearing that was at 11 AM today and in that hearing Telemetry Technician Ivan resided and had to refuse herself because she is on the board of [facility] and so we will still be awaiting a sports activities foul judge of being named and a jury being selected. PDMP PDMP Reviewed: Not Reviewed Involuntary Hold Information Hold Status: Legal Status: 96 Hour Hold Date/Time Hold Expires: Court ordered administrative hold Attestations NPU Medical Necessity Statement*: Inpatient hospitalization is medically necessary and?the clinically appropriate intervention at this time.? We will monitor/initiate medications and make changes as indicated.? The patient?s likely length of stay 6-9 days. Coding Level of Care Code Acute Code for g Fwd Diagnoses Acute psychosis F23 Mojgan F30.9
[2024-07-28 20:42] VITALS: BP 129/71; PULSE 87; RESP 18; TEMP 36.6; O2SAT 93
[2024-07-29 06:00] VITALS: BP 107/63; PULSE 74; RESP 16; TEMP 36.7; O2SAT 97
--- NOTE | 2024-07-29 07:55 | P.NPUPN_ITS ---
Subjective NPU Subjective: Patient presented today reporting that he is doing okay. He continues to be very exuberant in his endorsing that he is the second coming and that he can be referred to in short hand as Ashish Saini. He continues to report that this is not a delusion but in fact true and is wanting to be discharged but thinks it is unfair that he is being kept for his caodaism conviction. We discussed the risks, benefits and alternatives of increasing his Abilify and discussed the likelihood of the long-acting injectable soon. He denied any side effects of the medication. Mental Status Exam MSE Comments: This is an overweight versus obese white male in hospital scrubs with limited grooming and some eye contact. No abnormal movements except for mild psychomotor agitation. Cooperative with exam with mild to moderate distress. Speech was increased rate and volume. Mood described as fine affect irritable and agitated. Thought process linear but at times disorganized. Thought content: Patient denied suicidal or homicidal ideation, there were no delusions reported but clear attending to internal stimuli occurred, he exhibited paranoid, persecutory hyperreligious delusions, he denied auditory or visual hallucinations but indicated that there are ways that he obtain extra corporal voices and interactions. Attention and concentration were limited and memory appeared unreliable but none were formally tested. He is alert and oriented x 3. Insight, judgment and impulse control are all impaired. Vitals/I&O/Wt Last Vital Signs Temp 98.0 F 07/29/24 06:00 Pulse 74 07/29/24 06:00 Resp 16 07/29/24 06:00 BP 107/63 07/29/24 06:00 Pulse Ox 97 07/29/24 06:00 O2 Del Method Room Air 07/28/24 14:00 Weight last 48 hrs Weight 107.275 kg A&P Assessment and plan (1) Acute psychosis: (2) Ruthy: Plan 63-year-old male presents with grandiosity and reported sleep disturbance with previous experience with antipsychotics currently refusing all medications and all labs as well. He will continue to require involuntary hospitalization with significant problems reported in his home environment according to multiple affidavits supporting need for treatment and evaluation. 1. Klonopin prn for sleep disturbance 2. Start forced medicine protocol will give 20 mg of Geodon IM for p.o. refusal of Abilify 15 mg p.o. daily. He continues to refuse his medication and need a second approach to get the pill taken. Starting tomorrow we will have an injection for p.o. refusal. Will likely consider the Abilify Maintena in the next few days. With signs of improvement we will consider giving Abilify Maintena 400 mg IM tomorrow. Increase Abilify to 20 mg p.o. daily. 3. Haldol/zyprexa for agitation. 4. Consider [place] for ruthy. Abilify was started so he would be able to be placed on a long-acting injectable. And at that point with cooperation maybe add the lithium. 5. He had his 21-day hold hearing and he was placed on a hold allowing for involuntary treatment but he demanded a jury trial and so that process is moving forward and likely will not happen till sometime next week at the earliest. Until then we have given permission to treat involuntarily. Patient had a hearing that was at 11 AM today and in that hearing Assistant Community Manager Ivan resided and had to refuse herself because she is on the board of [facility] and so we will still be awaiting a economic development director of being named and a jury being selected. PDMP PDMP Reviewed: Not Reviewed Involuntary Hold Information Hold Status: Legal Status: 96 Hour Hold Date/Time Hold Expires: Court ordered administrative hold Attestations NPU Medical Necessity Statement*: Inpatient hospitalization is medically necessary and?the clinically appropriate intervention at this time.? We will monitor/initiate medications and make changes as indicated.? The patient?s likely length of stay 6-9 days. Coding Level of Care Code Acute Code for [facility] [place] Fwd Diagnoses Acute psychosis F23 Ruthy F30.9
[2024-07-29] MEDS: ARIPiprazole 30 mg Tablet 15 MG PO (08:45)
[2024-07-29 14:00] VITALS: BP 113/73; PULSE 85; RESP 17; TEMP 36.7; O2SAT 95
[2024-07-29 20:00] VITALS: BP 115/66; PULSE 75; RESP 18; TEMP 37; O2SAT 99
[2024-07-30 06:00] VITALS: BP 109/64; PULSE 82; RESP 18; TEMP 36.9; O2SAT 99
[2024-07-30] MEDS: ARIPiprazole 30 mg Tablet PO (11:39)
--- NOTE | 2024-07-30 12:12 | PC.NURSE ---
Patient refused morning dose of 20 mg PO Abilify. notified. New verbal order received for Geodon IM [address] Hassan and RN supervisor game farm visited with the patient to discuss medication options. New verbal order received for Abilify 30 mg PO daily starting today. Patient was cooperative and took the 30 mg PO Abilify. IM Geodon was not administered.
[2024-07-30 14:00] VITALS: BP 109/66; PULSE 81; RESP 18; TEMP 36.6; O2SAT 97
--- NOTE | 2024-07-30 18:20 | P.NPUPN_ITS ---
Subjective NPU Subjective: Patient presents today reporting that he is doing okay. After having days where he was taking the medication as requested he refused his medication because he did not want there to be an increase. He was reporting he did not want increase the medication from 15 to 20 mg but we discussed with his continued delusional thinking that would be appropriate. He then said that he wanted to switch to Invega but then when he read the information on Invega and saw that it ended in ONE he reported that he would take the Abilify and reported that he would be fine increasing it to 30 mg. As we had discussed that being the likely target dose. So we discussed the risk benefits and alternatives of switching to 30 mg versus 20 mg and he understood and agreed to proceed as is documented in this note. We discussed the fact that there could be a hard transition making that change more quickly but he said that if we switch that the 30 mg he would take it. He denied any side effects of medication but did report having some difficulty with headaches and not feeling he should be on the medication anyway. Brought up cannabis again. Mental Status Exam MSE Comments: This is an overweight versus obese white male in hospital scrubs with limited grooming and some eye contact. No abnormal movements except for mild psychomotor agitation. Cooperative with exam with mild to moderate distress. S peech was increased rate and volume. Mood described as fine affect irritable and agitated. Thought process linear but at times disorganized. Thought content: Patient denied suicidal or homicidal ideation, there were no delusions reported but clear attending to internal stimuli occurred, he exhibited paranoid, persecutory hyperreligious delusions, he denied auditory or visual hallucinations but indicated that there are ways that he obtain extra corporal voices and interactions. Attention and concentration were limited and memory appeared unreliable but none were formally tested. He is alert and oriented x 3. Insight, judgment and impulse control are all impaired. Vitals/I&O/Wt Last Vital Signs Temp 98 F 07/30/24 14:00 Pulse 81 07/30/24 14:00 Resp 18 07/30/24 14:00 BP 109/66 07/30/24 14:00 Pulse Ox 97 07/30/24 14:00 O2 Del Method Room Air 07/30/24 14:00 A&P Assessment and plan (1) Acute psychosis: (2) Ruthy: Plan 63-year-old male presents with grandiosity and reported sleep disturbance with previous experience with antipsychotics currently refusing all medications and all labs as well. He will continue to require involuntary hospitalization with significant problems reported in his home environment according to multiple affidavits supporting need for treatment and evaluation. 1. Klonopin prn for sleep disturbance 2. Start forced medicine protocol will give 20 mg of Geodon IM for p.o. refusal of Abilify 15 mg p.o. daily. He continues to refuse his medication and need a second approach to get the pill taken. Starting tomorrow we will have an injection for p.o. refusal. Will likely consider the Abilify Maintena in the next few days. With signs of improvement we will consider giving Abilify Maintena 400 mg IM tomorrow. Increased Abilify to 30 mg p.o. daily. 3. Haldol/zyprexa for agitation. 4. Consider [place] for ruthy. Abilify was started so he would be able to be placed on a long-acting injectable. And at that point with cooperation maybe add the lithium. 5. He had his 21-day hold hearing and he was placed on a hold allowing for involuntary treatment but he demanded a jury trial and so that process is moving forward and likely will not happen till sometime next week at the earliest. Until then we have given permission to treat involuntarily. Patient had a hearing that was at 11 AM today and in that hearing Telecommunication Lines Repairer Ivan resided and had to refuse herself because she is on the board of [facility] and so we will still be awaiting a pay clerk of being named and a jury being selected. PDMP PDMP Reviewed: Not Reviewed Involuntary Hold Information Hold Status: Legal Status: 96 Hour Hold Date/Time Hold Expires: Court ordered administrative hold Attestations NPU Medical Necessity Statement*: Inpatient hospitalization is medically necessary and?the clinically appropriate intervention at this time.? We will monitor/initiate medications and make changes as indicated.? The patient?s likely length of stay 6-9 days. Coding Level of Care Code Acute Code for [facility] Fwd Diagnoses Acute psychosis F23 Ruthy F30.9
[2024-07-30 22:00] VITALS: BP 85/56; PULSE 86; RESP 18; TEMP 36.7; O2SAT 95
--- NOTE | 2024-07-31 02:22 | PC.NURSE ---
Addendum entered by Reilly Álvarez RN 07/31/24 05:13: Patient is also attributing the Abilify to an inability to get a urine stream started. Original Note: Patient came to nurses station at 02:18 loudly C/O leg cramps and head ache that he feels are reactions / side affects of his current medication (Abilify). He stated he was not going to take any more Abilify, but would conceder Invega.
--- NOTE | 2024-07-31 05:16 | PC.NURSE ---
Patient has requested a Complaint packet from the federal court house in [facility] to aid him his pursuit / intention to litigate against the facility. He feels that he should have received this material already as he requested it a full week ago. He is requesting that staff look into the whereabouts of this ordered material. The patient disagrees with the treating provider and multiple accusations in regard to him calming that the patient has been calming that he is God . The patient adamantly denies these accusations and also the provider speaking with staff about his care / situation.
[2024-07-31 06:00] VITALS: RESP 18
--- NOTE | 2024-07-31 06:22 | PC.NURSE ---
vs not collected pt ref resp 18 charge notified
[2024-07-31 09:30] VITALS: BP 109/61; PULSE 83; RESP 18; TEMP 36.6; O2SAT 98
[2024-07-31] MEDS: ARIPiprazole 10 mg Tablet 20 MG PO (09:37)
[2024-07-31 14:00] VITALS: RESP 18
--- NOTE | 2024-07-31 14:51 | PC.NURSE ---
pt refused vital signs.
--- NOTE | 2024-07-31 16:50 | W.PM.NPUPNS ---
Subjective NPU Subjective: Patient presented today reporting that he is doing okay. He reports he did not like taking the 30 mg of Abilify. We discussed the fact that I had discussed with him that the increase to 20 mg would have been more reasonable but he was uncomfortable with the pill form with her taking 2 pills. So we discussed the risks, benefits and alternatives of returning back to 20 mg p.o. daily of the Abilify and he had lobbied to have 15 but we discussed the fact that he continued to be symptomatic with his delusions and that we needed to increase the medication. He denied anything other than reports of feeling funny on the medication. He did report however that he would not take the Invega because it was paliperidone. And he identified that that would kill him. Because that is Pali Leatha (Ehsan) done. So Ehsan done. Mental Status Exam MSE Comments: This is an overweight versus obese white male in hospital scrubs with limited grooming and some eye contact. No abnormal movements except for mild psychomotor agitation. Cooperative with exam with mild to moderate distress. Speech was increased rate and volume. Mood described as not happy about having to take the medication affect irritable and agitated. Thought process linear but at times disorganized. Thought content: Patient denied suicidal or homicidal ideation, there were no delusions reported but clear attending to internal stimuli occurred, he exhibited paranoid, persecutory hyperreligious delusions, he denied auditory or visual hallucinations but indicated that there are ways that he obtain extra corporal voices and interactions. Attention and concentration were limited and memory appeared unreliable but none were formally tested. He is alert and oriented x 3. Insight, judgment and impulse control are all impaired. Vitals/I&O/Wt Last Vital Signs Temp 98 F 07/31/24 09:30 Pulse 83 07/31/24 09:30 Resp 18 07/31/24 14:00 BP 109/61 07/31/24 09:30 Pulse Ox 98 07/31/24 09:30 O2 Del Method Room Air 07/31/24 09:30 A&P Assessment and plan (1) Acute psychosis: (2) Mojgan: Plan 63-year-old male presents with grandiosity and reported sleep disturbance with previous experience with antipsychotics currently refusing all medications and all labs as well. He will continue to require involuntary hospitalization with significant problems reported in his home environment according to multiple affidavits supporting need for treatment and evaluation. 1. Klonopin prn for sleep disturbance 2. Start forced medicine protocol will give 20 mg of Geodon IM for p.o. refusal of Abilify 15 mg p.o. daily. He continues to refuse his medication and need a second approach to get the pill taken. Starting tomorrow we will have an injection for p.o. refusal. Will likely consider the Abilify Maintena in the next few days. With signs of improvement we will consider giving Abilify Maintena 400 mg IM tomorrow. Increased Abilify to 30 mg p.o. daily. Patient wanting to return to the 20 mg saying the 30 mg is too much and we discussed that I had suggested that he take the slower route. 3. Haldol/zyprexa for agitation. 4. Consider [place] for mojgan. Abilify was started so he would be able to be placed on a long-acting injectable. And at that point with cooperation maybe add the lithium. 5. He had his 21-day hold hearing and he was placed on a hold allowing for involuntary treatment but he demanded a jury trial and so that process is moving forward and likely will not happen till sometime next week at the earliest. Until then we have given permission to treat involuntarily. Patient had a hearing that was at 11 AM today and in that hearing Production Welding Supervisor Ivan resided and had to refuse herself because she is on the board of [facility] and so we will still be awaiting a vulcanizing machine operator of being named and a jury being selected. PDMP PDMP Reviewed: Not Reviewed Involuntary Hold Information Hold Status: Legal Status: 96 Hour Hold Date/Time Hold Expires: Court ordered administrative hold Attestations NPU Medical Necessity Statement*: Inpatient hospitalization is medically necessary and?the clinically appropriate intervention at this time.? We will monitor/initiate medications and make changes as indicated.? The patient?s likely length of stay 6-9 days. Coding Level of Care Code Acute Code for Chg Fwd Diagnoses Acute psychosis F23 Mojgan F30.9
--- NOTE | 2024-07-31 22:14 | PC.NURSE ---
pt refused vs, charge nurse notified
--- NOTE | 2024-08-01 00:36 | PC.NURSE ---
At 11:45pm this fha underwriter was doing rounding and the patient's door did not remain shut after closing. Patient proceeded to come up to the nurses station and question this fha underwriter about pushing the door open , and claimed loudly You woke me up now I'm up and you guys have to deal with that. You're all just 007 (double o seven), and 666 in here anyways . Patient proceeded to ask for prune juice and sit in the day room
--- NOTE | 2024-08-01 08:43 | PC.NURSE ---
Pt on phone at nurses station, unknown who is speaking with. He stated that, no one should have control over someone else's body He also stated, If they force me to get a shot someone is going to get a knuckle sandwich. His conversation carried on for approx another 3 min before ending.
--- NOTE | 2024-08-01 13:17 | W.PM.NPUPNS ---
Subjective NPU Subjective: Patient presented today reporting that he does not feel he is doing well because he is here. He had refused his Abilify this morning and then tried to backtrack and take it after taking the nurse for a long circuitous route ultimately he was given the injection for refusal and during this exchange he became very agitated very aggressive screaming expletives and ultimately calling this telegraphic typewriter operator a nigjair. He later reported that the medication that he got i.e. the Geodon was very helpful and it helped him come to an epiphany about the fact that he has been holding things in and that in fact his worry has been all along that his children might have been killed secondary to him being who he is in so he wants to this telegraphic typewriter operator and staff to do some investigating to find out of his children are alive. He told this story quite tearfully. Mental Status Exam MSE Comments: This is an overweight versus obese white male in hospital scrubs with limited grooming and some eye contact. No abnormal movements except for moments of extreme psychomotor agitation. Cooperative with exam with mild but at times extreme distress. Speech was increased rate and volume. Mood described as pissed off, affect irritable and agitated. Thought process linear but at times disorganized. Thought content: Patient denied suicidal or homicidal ideation but was making threats to this telegraphic typewriter operator and staff upon receiving the injection, there were no delusions reported but clear attending to internal stimuli occurred, he exhibited paranoid, persecutory hyperreligious delusions, he denied auditory or visual hallucinations but indicated that there are ways that he obtain extra corporal voices and interactions. Attention and concentration were limited and memory appeared unreliable but none were formally tested. He is alert and oriented x 3. Insight, judgment and impulse control are all impaired. Vitals/I&O/Wt Last Vital Signs Temp 98 F 07/31/24 09:30 Pulse 83 07/31/24 09:30 Resp 18 07/31/24 14:00 BP 109/61 07/31/24 09:30 Pulse Ox 98 07/31/24 09:30 O2 Del Method Room Air 07/31/24 09:30 A&P Assessment and plan (1) Acute psychosis: (2) Ruthy: Plan 63-year-old male presents with grandiosity and reported sleep disturbance with previous experience with antipsychotics currently refusing all medications and all labs as well. He will continue to require involuntary hospitalization with significant problems reported in his home environment according to multiple affidavits supporting need for treatment and evaluation. 1. Klonopin prn for sleep disturbance 2. Start forced medicine protocol will give 20 mg of Geodon IM for p.o. refusal of Abilify 15 mg p.o. daily. He continues to refuse his medication and need a second approach to get the pill taken. Starting tomorrow we will have an injection for p.o. refusal. Will likely consider the Abilify Maintena in the next few days. With signs of improvement we will consider giving Abilify Maintena 400 mg IM tomorrow. Increased Abilify to 30 mg p.o. daily. Patient refused his Abilify and received the Geodon injection. He later reported that he felt much calmer after that and suggested the possibility of getting that medication tomorrow even possibly an injection. 3. Haldol/zyprexa for agitation. 4. Consider [place] for ruthy. Abilify was started so he would be able to be placed on a long-acting injectable. And at that point with cooperation maybe add the lithium. 5. He had his 21-day hold hearing and he was placed on a hold allowing for involuntary treatment but he demanded a jury trial and so that process is moving forward and likely will not happen till sometime next week at the earliest. Until then we have given permission to treat involuntarily. Patient had a hearing that was at 11 AM today and in that hearing Underground Mine Superintendent Ivan resided and had to refuse herself because she is on the board of [facility] and so we will still be awaiting a hot iron worker of being named and a jury being selected. PDMP PDMP Reviewed: Not Reviewed Involuntary Hold Information Hold Status: Legal Status: 96 Hour Hold Date/Time Hold Expires: Court ordered administrative hold Attestations NPU Medical Necessity Statement*: Inpatient hospitalization is medically necessary and?the clinically appropriate intervention at this time.? We will monitor/initiate medications and make changes as indicated.? The patient?s likely length of stay 6-9 days. Coding Level of Care Code Acute Code for Chg Fwd Diagnoses Acute psychosis F23 Ruthy F30.9
[2024-08-01] MEDS: benztropine 1 mg/mL SDV 2 mL IM (13:19)
[2024-08-01] MEDS: ziprasidone 20 mg/mL SDV IM (13:19)
[2024-08-01] MEDS: water for injection-sterile 10 ML (13:21)
[2024-08-01 14:00] VITALS: BP 92/58; PULSE 90; RESP 18; TEMP 36.6; O2SAT 97
[2024-08-01 20:10] VITALS: BP 128/76; PULSE 87; RESP 18; TEMP 37.2; O2SAT 96
--- NOTE | 2024-08-02 03:59 | PC.NURSE ---
when doing 0345 rounds pt was sitting on side of bed and asked me to come in to room and talk with him for a few mins. i went in and he wanted to let me know that he want to take the shot they gave me yesterday, it made me feel better .
[2024-08-02 06:00] VITALS: BP 133/88; PULSE 71; RESP 18; TEMP 37.2; O2SAT 97
--- NOTE | 2024-08-02 08:54 | P.NPUPN_ITS ---
Subjective NPU Subjective: Patient presented today reporting that things were going okay. He reports that the Geodon seems to help him relax. We discussed having some concerns about the Geodon because there is no way to give a long-acting injectable in his commitment to taking medication is limited. However we may choose to give him the Geodon and then give a small dose of Abilify as an underlying medication. But this is something we will have to figure out along the way given his continued delusional thinking. We discussed the risks, benefits and alternatives of starting Geodon 20 mg in the morning and 40 mg in the afternoon as a starting spot and he understood and agreed to proceed as documented in this note. Mental Status Exam MSE Comments: This is an overweight versus obese white male in hospital scrubs with limited grooming and some eye contact. No abnormal movements except for moments of extreme psychomotor agitation. Cooperative with exam with mild but at times extreme distress. Speech was increased rate and volume. Mood described as pissed off, affect irritable and agitated. Thought process linear but at times disorganized. Thought content: Patient denied suicidal or homicidal ideation but was making threats to this script writer and staff upon receiving the injection, there were no delusions reported but clear attending to internal stimuli occurred, he exhibited paranoid, persecutory hyperreligious delusions, he denied auditory or visual hallucinations but indicated that there are ways that he obtain extra corporal voices and interactions. Attention and concentration were limited and memory appeared unreliable but none were formally tested. He is alert and oriented x 3. Insight, judgment and impulse control are all impaired. Vitals/I&O/Wt Last Vital Signs Temp 98.9 F 08/02/24 06:00 Pulse 71 08/02/24 06:00 Resp 18 08/02/24 06:00 BP 133/88 08/02/24 06:00 Pulse Ox 97 08/02/24 06:00 O2 Del Method Room Air 07/31/24 09:30 A&P Assessment and plan (1) Acute psychosis: (2) Ruthy: Plan 63-year-old male presents with grandiosity and reported sleep disturbance with previous experience with antipsychotics currently refusing all medications and all labs as well. He will continue to require involuntary hospitalization with significant problems reported in his home environment according to multiple affidavits supporting need for treatment and evaluation. 1. Klonopin prn for sleep disturbance 2. Start forced medicine protocol will give 20 mg of Geodon IM for p.o. refusal of Abilify 15 mg p.o. daily. He continues to refuse his medication and need a second approach to get the pill taken. Starting tomorrow we will have an injection for p.o. refusal. Will likely consider the Abilify Maintena in the next few days. With signs of improvement we will consider giving Abilify Maintena 400 mg IM tomorrow. Increased Abilify to 30 mg p.o. daily. Patient refused his Abilify and received the Geodon injection. He later reported that he felt much calmer after that and suggested the possibility of getting that medication tomorrow even possibly an injection. Will give him Geodon 20 mg in the morning and 40 mg in the evening tomorrow and see how things go. 3. Haldol/zyprexa for agitation. 4. Consider [place] for ruthy. Abilify was started so he would be able to be placed on a long-acting injectable. And at that point with cooperation maybe add the lithium. 5. He had his 21-day hold hearing and he was placed on a hold allowing for involuntary treatment but he demanded a jury trial and so that process is moving forward and likely will not happen till sometime next week at the earliest. Until then we have given permission to treat involuntarily. Patient had a hearing that was at 11 AM today and in that hearing Rn Anesthesiology Ivan resided and had to refuse herself because she is on the board of [facility] and so we will still be awaiting a environmental conflict manager of being named and a jury being selected. PDMP PDMP Reviewed: Not Reviewed Involuntary Hold Information Hold Status: Legal Status: 96 Hour Hold Date/Time Hold Expires: Court ordered administrative hold Attestations NPU Medical Necessity Statement*: Inpatient hospitalization is medically necessary and?the clinically appropriate intervention at this time.? We will monitor/initiate medications and make changes as indicated.? The patient?s likely length of stay 6-9 days. Coding Level of Care Code Acute Code for Chg Fwd Diagnoses Acute psychosis F23 Ruthy F30.9
[2024-08-02] MEDS: ziprasidone 20 mg/mL SDV IM (09:32)
[2024-08-02] MEDS: water for injection-sterile 10 ML (09:33)
[2024-08-02] MEDS: benztropine 1 mg/mL SDV 2 mL IM (09:33)
[2024-08-02 14:00] VITALS: BP 113/75; PULSE 92; RESP 18; TEMP 36.6; O2SAT 96
[2024-08-02] MEDS: capsaicin 0.025% cream 60 gm 1 APPLIC TOPICAL (16:31)
[2024-08-02 19:58] VITALS: BP 128/77; PULSE 87; RESP 20; TEMP 36.4; O2SAT 98
[2024-08-03 06:00] VITALS: RESP 16
[2024-08-03] MEDS: benztropine 1 mg Tablet PO ×2 (10:22→18:22)
[2024-08-03] MEDS: ziprasidone hcl 20 mg Capsule PO ×2 (10:22→17:49)
--- NOTE | 2024-08-03 11:00 | PC.NURSE ---
Pt was questioning the new order for the Abilify 10mg. Spoke with Dr. Hassan and he was okay with him not taking it as long as he took the Geosam PO.
--- NOTE | 2024-08-03 11:25 | P.NPUPN_ITS ---
Subjective NPU Subjective: Patient presented today reporting that things are going all right. He took the Geodon 20 mg in the morning and 40 mg in the evening without difficulty. He reports that he does feel a bit clearer on this medication. We discussed the fact that we need to see him making improvements in his delusional thinking before discharge will occur but explained that Dr. Soni will be here tomorrow making decisions about things going forward. Mental Status Exam MSE Comments: This is an overweight versus obese white male in hospital scrubs with limited grooming and some eye contact. No abnormal movements except for mild psychomotor retardation. Cooperative with exam with mild distress. Speech was more normal rate and volume. Mood described as calmer, affect irritable and agitated. Thought process linear but at times disorganized. Thought content: Patient denied suicidal or homicidal ideation, there were no delusions reported but clear attending to internal stimuli occurred, he exhibited paranoid, persecutory hyperreligious delusions, he denied auditory or visual hallucinations but indicated that there are ways that he obtain extra corporal voices and interactions. Attention and concentration were limited and memory appeared unreliable but none were formally tested. He is alert and oriented x 3. Insight, judgment and impulse control are all impaired. Vitals/I&O/Wt Last Vital Signs Temp 97.5 F L 08/02/24 19:58 Pulse 87 08/02/24 19:58 Resp 16 08/03/24 06:00 BP 128/77 08/02/24 19:58 Pulse Ox 98 08/02/24 19:58 O2 Del Method Room Air 08/02/24 14:00 A&P Assessment and plan (1) Acute psychosis: (2) Ruthy: Plan 63-year-old male presents with grandiosity and reported sleep disturbance with previous experience with antipsychotics currently refusing all medications and all labs as well. He will continue to require involuntary hospitalization with significant problems reported in his home environment according to multiple affidavits supporting need for treatment and evaluation. 1. Klonopin prn for sleep disturbance 2. Start forced medicine protocol will give 20 mg of Geodon IM for p.o. refusal of Abilify 15 mg p.o. daily. He continues to refuse his medication and need a second approach to get the pill taken. Starting tomorrow we will have an injection for p.o. refusal. Will likely consider the Abilify Maintena in the next few days. With signs of improvement we will consider giving Abilify Maintena 400 mg IM tomorrow. Increased Abilify to 30 mg p.o. daily. Patient refused his Abilify and received the Geodon injection. He later reported that maryjane londono felt much calmer after that and suggested the possibility of getting that medication tomorrow even possibly an injection. Will give him Geodon 20 mg in the morning and 40 mg in the evening tomorrow and see how things go. 3. Haldol/zyprexa for agitation. 4. Consider [place] for ruthy. Abilify was started so he would be able to be placed on a long-acting injectable. And at that point with cooperation maybe add the lithium. 5. He had his 21-day hold hearing and he was placed on a hold allowing for involuntary treatment but he demanded a jury trial and so that process is moving forward and likely will not happen till sometime next week at the earliest. Until then we have given permission to treat involuntarily. Patient had a hearing that was at 11 AM today and in that hearing Vocational Technical Education Teacher Ivan resided and had to refuse herself because she is on the board of [facility] and so we will still be awaiting a supervisor hand workers of being named and a jury being selected. PDMP PDMP Reviewed: Not Reviewed Involuntary Hold Information Hold Status: Legal Status: 96 Hour Hold Date/Time Hold Expires: Court ordered administrative hold Attestations NPU Medical Necessity Statement*: Inpatient hospitalization is medically necessary and?the clinically appropriate intervention at this time.? We will monitor/initiate medications and make changes as indicated.? The patient?s likely length of stay 6-9 days. Coding Level of Care Code Acute Code for Chg Fwd Diagnoses Acute psychosis F23 Ruthy F30.9
[2024-08-03 14:00] VITALS: BP 116/69; PULSE 81; RESP 18; TEMP 36.3; O2SAT 97
[2024-08-03 20:16] VITALS: BP 127/70; PULSE 86; RESP 20; TEMP 36.6; O2SAT 96
[2024-08-04 06:00] VITALS: BP 128/68; PULSE 80; RESP 18; O2SAT 96; BMI 33.3
[2024-08-04] MEDS: ziprasidone hcl 20 mg Capsule PO ×2 (07:16→17:54)
[2024-08-04] MEDS: benztropine 1 mg Tablet PO ×2 (07:16→17:54)
--- NOTE | 2024-08-04 10:47 | PC.NURSE ---
Pt states that he slept ok He denies any anxiety or depression. No reports of hallucinations. Denies SI/HI. He states that he woke up with a shirt soaked last from nightsweats. He is reporting his Lt field hurting 08/13. He has a red line that runs up his field and slightly wraps around his leg to his knee. I have called to let Dr. Soni know and see if a med consult could be order, but he has not answered or returned the call. Will follow up again.
[2024-08-04 14:00] VITALS: BP 114/74; PULSE 83; RESP 18; TEMP 36.4; O2SAT 98
--- NOTE | 2024-08-04 18:02 | P.NPUPN_ITS ---
Subjective NPU Subjective: 64-year-old male with a history of psych osis admitted with active ruthy. Patient remains on administrative hold here. He has been more redirectable and had been stating that he was feeling better on his oral Geodon. He had complained of a problem with his left leg today. He had reported that he remained the second coming of God. He continued to report that he was the God almighty. He continued to state that he would be willing to lay down on the cross again. He had continued to spend time writing excessively. Mental Status Exam MSE Comments: This is an overweight versus obese white male in hospital scrubs with limited grooming and some eye contact. No abnormal movements except for mild psychomotor retardation. Cooperative with exam with mild distress. Speech was more normal rate and volume. Mood described as calmer, affect remained animated and irritable. Thought process linear but derailed later. Thought content: Patient denied suicidal or homicidal ideation, there were clear ideas of reference and bizarre delusions about being the reincarnation of god. Attention and concentration were limited and memory appeared unreliable but none were formally tested. He is alert and oriented x 3. Insight, judgment and impulse control are all impaired. Vitals/I&O/Wt Last Vital Signs Temp 97.5 F L 08/04/24 14:00 Pulse 83 08/04/24 14:00 Resp 18 08/04/24 14:00 BP 114/74 08/04/24 14:00 Pulse Ox 98 08/04/24 14:00 O2 Del Method Room Air 08/04/24 06:00 Weight last 48 hrs Weight 111.3 kg A&P Assessment and plan (1) Acute psychosis: (2) Ruthy: Plan 63-year-old male presents with grandiosity and reported sleep disturbance with previous experience with antipsychotics currently refusing all medications and all labs as well. He will continue to require involuntary hospitalization with significant problems reported in his home environment according to multiple affidavits supporting need for treatment and evaluation. 1. Klonopin prn for sleep disturbance. 2. Increase oral geodon to 20mg in am, 60mg at night. Start forced medicine protocol will give 20 mg of Geodon IM for p.o. refusal of Abilify 15 mg p.o. daily. He continues to refuse his medication and need a second approach to get the pill taken. Starting tomorrow we will have an injection for p.o. refusal. Will likely consider the Abilify Maintena in the next few days. With signs of improvement we will consider giving Abilify Maintena 400 mg IM tomorrow. Increased Abilify to 30 mg p.o. daily. Patient refused his Abilify and received the Geodon injection. He later reported that he felt much calmer after that and suggested the possibility of getting that medication tomorrow even possibly an injection. Will give him Geodon 20 mg in the morning and 40 mg in the evening tomorrow and see how things go. 3. Haldol/zyprexa for agitation. 4. Consider [place] for ruthy. Abilify was started so he would be able to be placed on a long-acting injectable. And at that point with cooperation maybe add the lithium. 5. He had his 21-day hold hearing and he was placed on a hold allowing for involuntary treatment but he demanded a jury trial and so that process is moving forward and likely will not happen till sometime next week at the earliest. Until then we have given permission to treat involuntarily. Patient had a hearing that was at 11 AM today and in that hearing Dressing Room Porter Ivan resided and h ad to refuse herself because she is on the board of [facility] and so we will still be awaiting a camera technician of being named and a jury being selected. PDMP PDMP Reviewed: Not Reviewed Involuntary Hold Information Hold Status: Legal Status: 96 Hour Hold Date/Time Hold Expires: Court ordered administrative hold Attestations NPU Medical Necessity Statement*: Inpatient hospitalization is medically necessary and?the clinically appropriate intervention at this time.? We will monitor/initiate medications and make changes as indicated.? The patient?s likely length of stay 6-9 days. Coding Level of Care Code Acute Code for [facility] Fwd Diagnoses Acute psychosis F23 Ruthy F30.9
[2024-08-04 20:46] VITALS: BP 119/77; PULSE 80; RESP 17; TEMP 36.5; O2SAT 94
--- NOTE | 2024-08-04 22:04 | PM.CONSULT ---
Providers/Reason For Consult Consulting Physician/Specialty*: Mikal Brown MD Reason for Consult*: Left leg streaking rash Requesting Physician: Dr. Soni Attending Physician: Grover Soni MD History of Present Illness History of Present Illness Ehsan Shaw is a 64 year old male admitted on involuntary hold. Dr. Soni asked me to see him regarding serpiginous rash going up the leg. Patient denies any recent bug bites. He denies history of clots in his legs or lungs Medications/Allergies Home Medications ?Medication ?Instructions ?Recorded ?Confirmed ?Last Taken ?Type No Known Home Medications 07/17/24 07/17/24 Unknown History Current Medications Generic Name Dose Route Start Last Admin Trade Name Freq PRN Reason Stop Dose Admin Benztropine Mesylate 1 mg 07/17/24 18:50 08/04/24 17:54 Benztropine 1 Mg Tablet PO 1 mg BID PRN Administration Mild Extrapyramidal symptoms Capsaicin 1 applic 08/02/24 04:08 08/02/24 16:31 Capsaicin 0.025% Cream 60 Gm TOPICAL 1 applic QID PRN Administration PAIN Vitals/I&O/Wt Last Vital Signs Temp 97.7 F 08/04/24 20:46 Pulse 80 08/04/24 20:46 Resp 17 08/04/24 20:46 BP 119/77 08/04/24 20:46 Pulse Ox 94 08/04/24 20:46 O2 Del Method Room Air 08/04/24 20:46 Weight last 48 hrs Weight 111.3 kg Physical Exam Narrative: General well-developed well-nourished male in no acute cardiopulmonary distress CV regular rate and rhythm Lungs clear to auscultation bilaterally Legs there is no asymmetry of the general size of the leg but there is a superficial phlebitic tender firmness going up the anteromedial portion of his leg. This is consistent with phlebitis A&P Assessment and plan (1) Superficial phlebitis and thrombophlebitis of left leg: Will treat with aspirin, warm compresses and leg elevation. Additionally the patient should have an ultrasound of the leg in the morning. Exclude DVT but I do not find swelling to suggest DVT. Patient asked if Brielle would be responsible for this and I do not think so PDMP PDMP Reviewed: Not Reviewed Coding Level of Care Code 81660 Diagnoses Superficial phlebitis and thrombophlebitis of left leg I80.02 Time Spent (min) 25
[2024-08-04] MEDS: aspirin 81 mg Chew Tablet 324 MG PO (22:46)
--- NOTE | 2024-08-05 05:24 | PC.NURSE ---
Patient came to the window and told this RN that he wants it noted in his chart that he does not want to take the Geodon anymore. He says that he read up on it and that it can cause the issues that he is having with his leg. Attempt to educate the patient on the medication that he is taking and on phlebitis. He states I just got to get out of here. Offered tylenol for pain and he refused. Offered warm moist pack and he said not right now because I'm up. Patient is pacing the halls.
[2024-08-05 06:00] VITALS: BP 126/76; PULSE 79; RESP 19; O2SAT 98
[2024-08-05] MEDS: ziprasidone hcl 20 mg Capsule PO (08:38)
[2024-08-05] MEDS: benztropine 1 mg Tablet PO ×2 (08:42→17:43)
--- NOTE | 2024-08-05 11:23 | USCV_ITS ---
Ehsan Shaw Age: 64 Gender: M : 1960 Exam Date: 08/05/2024 14:44 Ordering Phys: Liv Cordero MD Technologist: ANNETTA Exam Location: [facility] [place] Indication: BL LE Swelling HISTORY: Lower extremity swelling. PROCEDURES: Venous duplex imaging was performed in bilateral lower extremities. The following venous structures were evaluated: common femoral vein, profunda vein, proximal portion of the greater saphenous vein, superficial femoral vein, and the popliteal vein. In addition, the posterior tibial and peroneal trunk were evaluated. Serial compression, augmentation maneuvers, and spectral Doppler flow evaluation were performed. FINDINGS: ?SVT in GSV mid calf. CONCLUSIONS SVT LEFT GSV mid calf No DVT bilaterally Mikal Bullock MD (Electronically Signed) Final Date: 05 August 2024 15:53 S
[2024-08-05] MEDS: aspirin 325 mg EC Tablet PO (11:31)
[2024-08-05 14:00] VITALS: BP 136/83; PULSE 96; RESP 18; TEMP 36.6; O2SAT 95
[2024-08-05] MEDS: ziprasidone hcl 60 mg Capsule PO (17:28)
--- NOTE | 2024-08-05 18:10 | W.PM.NPUPNS ---
Subjective NPU Subjective: 64-year-old male with a history of psychosis admitted with active ruthy. The patient continued to reiterate that he did not need to be here. He states that he had freedom of adventist and had not been given fair rights. Patient had brought up the issue regarding his initial problem where he had gone to the court house and was attempting to investigate why a woman needed a restraining order and why she was bringing in young children into the court house. Patient had reported no knowledge of this particular person. He had continued to persist that he had felt that the children were unsafe and would continue to invoke that he had got on his side when deciding to make a decision to intervene with this woman despite having no clear knowledge of this woman or her children. He had reported that he was the God Almighty and continued to report that he had the power as a member of the Kingdom of heaven. He had intimated that he would discontinue these medications upon release from the hospital. Mental Status Exam MSE Comments: This is an overweight white male in hospital scrubs with limited grooming and some eye contact. No abnormal movements except for mild psychomotor retardation. Cooperative with exam with mild distress. Speech was more normal rate and volume. Mood described as allright. His affect was irritable. Thought process linear with less derailment. Thought content: Patient denied suicidal or homicidal ideation, there were clear ideas of reference and bizarre delusions about being the reincarnation of the Holy spirit. Attention and concentration were limited and memory appeared unreliable but none were formally tested. He is alert and oriented x 3. Insight, judgment and impulse control are all impaired. Vitals/I&O/Wt Last Vital Signs Temp 97.7 F 08/04/24 20:46 Pulse 79 08/05/24 06:00 Resp 19 H 08/05/24 06:00 BP 126/76 08/05/24 06:00 Pulse Ox 98 08/05/24 06:00 O2 Del Method Room Air 08/05/24 06:00 Weight last 48 hrs Weight 111.3 kg A&P Assessment and plan (1) Acute psychosis: (2) Ruthy: Plan 63-year-old male presents with grandiosity and reported sleep disturbance with previous experience with antipsychotics currently refusing all medications and all labs as well. He will continue to require involuntary hospitalization with significant problems reported in his home environment according to multiple affidavits supporting need for treatment and evaluation. 1. Klonopin prn for sleep disturbance. 2. Increase oral geodon to 20mg in am, 80mg at 7 PM at night. Start forced medicine protocol will give 20 mg of Geodon IM for p.o. refusal. He continues to refuse his medication and need a second approach to get the pill taken. Starting tomorrow we will have an injection for p.o. refusal. Will likely consider the Abilify Maintena in the next few days. With signs of improvement we will consider giving Abilify Maintena 400 mg IM tomorrow. Increased Abilify to 30 mg p.o. daily. Patient refused his Abilify and received the Geodon injection. He later reported that he felt much calmer after that and suggested the possibility of getting that medication tomorrow even possibly an injection. 3. Haldol/zyprexa for agitation. 4. Consider Gleed for ruthy. Abilify was started so he would be able to be placed on a long-acting injectable. And at that point with cooperation maybe add the lithium. 5. He had his 21-day hold hearing and he was placed on a hold allowing for involuntary treatment but he demanded a jury trial and so that process is moving forward and likely will not happen till sometime next week at the earliest. Until then we have given permission to treat involuntarily. Patient had a hearing that was at 11 AM today and in that hearing Home School Liaison Officer Ivan resided and had to refuse herself because she is on the board of [facility] and so we will still be awaiting a tester printed circuit boards of being named and a jury being selected. PDMP PDMP Reviewed: Not Reviewed Involuntary Hold Information Hold Status: Legal Status: 96 Hour Hold Date/Time Hold Expires: Court ordered administrative hold Attestations NPU Medical Necessity Statement*: Inpatient hospitalization is medically necessary and?the clinically appropriate intervention at this time.? We will monitor/initiate medications and make changes as indicated.? The patient?s likely length of stay 6-9 days. Coding Level of Care Code Acute Code for Chg Fwd Diagnoses Acute psychosis F23 Ruthy F30.9
--- NOTE | 2024-08-05 19:12 | PM.PN ---
Subjective Subjective: The patient was seen walking around the unit. He continues to endorse pain in his posterior left lower extremity, where the redness is noted. He also states that he is starting to experience pain almost in the exact same area in the right lower extremity, in his right wrist, (right where the radial pulses appreciated), and in his chest slightly to the right of the sternum around the fifth intercostal space. He denies any other symptoms. He is convinced that the injection of Geodon that he received is the reason why he has the left lower extremity erythema and tenderness. Vitals/I&O/Wt Last Vital Signs Temp 97.9 F 08/05/24 14:00 Pulse 96 08/05/24 14:00 Resp 18 08/05/24 14:00 BP 136/83 08/05/24 14:00 Pulse Ox 95 08/05/24 14:00 O2 Del Method Room Air 08/05/24 06:00 Weight last 48 hrs Weight 111.3 kg Physical Exam Narrative: Constitutional: GENERAL APPEARANCE: cooperative, comfortable and appears older than stated age; not combative, ill appearing, not frail appearing HENT: HEAD & SCALP: normocephalic and atraumatic; NOSE: external nose not normal EXTERNAL EAR: no external ears normal MOUTH: Normal oral and palatal mucosa present THROAT: posterior oropharynx normal Eye: PERRL, EOMI, normal conjunctiva b/l Neck: normal visual inspection, trachea midline, No anterior neck swelling, No tracheal deviation, No tracheostomy present, no submandibular swelling, Thyroid normal, cervical ROM normal Lymph: no cervical, supraclavicular LAD Resp: no use of accessory muscles, CTAB, no w/r/r Cardio: RRR, no m/r/g, or clicks. 2+ radial and DP pulses. GI: normoactive bowel sounds, non-tender, non-distended, no guarding, no rigidity, no rebound tenderness, no hepatosplenomegaly. : Deferred Back/Pelvis: Deferred Extremity: Left lower extremity with swelling & serpiginous erythema that is tender, but not particularly warmer than the R. LE. R. LE shows pitting edema to lower 1/3 of the tibia, but not swelling. darkened skin changes consistent w/ tortuous superficial and possibly veins . Neuro: AO to person, place and time. CN normal except as noted. Normal gait present. 5/5 motor strength present throughout. Normal motor muscle tone present throughout. No tremor noted. No motor abnormalities present. No motor fasciculations present Psych: APPEARANCE: A bit disheveled ATTITUDE: Yes calm and Yes engaged ACTIVITY/MOTOR BEHAVIOR: Yes appropriate eye contact SPEECH: Yes normal speech MOOD & AFFECT: elevated mood THOUGHT PROCESS:XXXX THOUGHT CONTENT: XXXX ATTENTION/CONCENTRATION: Yes attention grossly intact MEMORY/COGNITION: A&P Assessment and plan (1) Superficial phlebitis and thrombophlebitis of left leg: Plan Mr. Shaw is a 64 year old man admitted on 07/18/2024 on an involuntary hold for acute psychosis and mojgan. The Psychiatrist consulted the Hospitalist Medicine service on 08/04/2024 for a serpiginous rash going up the L. lower extremity leg. Patient is convinced that it is due to Geodon. #L. LE superficial thrombophlebitis. - Will treat with aspirin, warm compresses and leg elevation. - F/u b/l LE venous duplex US given the swelling in the R. LE to r/o DVT. He may have chronic venous stasis. #b/l LE swelling. - F/u b/l LE venous duplex US given the swelling in the R. LE to r/o DVT. He may have chronic venous stasis. Will also obtain a UA and a CMP to rule out renal involvement as well as LFTs to r/o any overt abnormalities that could indicate liver involvement. Thank you for involving hospitalist medicine on this consult. Will follow-up results of the venous duplex ultrasound. PDMP PDMP Reviewed: Not Reviewed Attestations Medical Necessity Statement*: The patient remains hospitalized for acute psychosis and mojgan. He also needs to remain hospitalized for his left lower extremity superficial thrombophlebitis to rule out a thrombus, superficial or deep vein. Other Coding Information Focused coding review requested Diagnoses Superficial phlebitis and thrombophlebitis of left leg I80.02
[2024-08-05 20:24] VITALS: BP 123/77; PULSE 86; RESP 18; TEMP 36.7; O2SAT 97
[2024-08-05 23:24] LABS: Bilirubin Urine Negative (Negative); Blood Urine Negative (Negative); Glucose Urine UA Negative (Normal); Ketones Urine Negative (Negative); Leukocyte Esterase Urine Negative (Negative); Nitrate Urine Negative (Negative); Protein Urine Negative (Negative); Specific Gravity, Urine 1.018 (1.005-1.030); Urine Appearance Clear (CLEAR); Urine Color Yellow (Yellow); Urobilinogen Urine 0.2 mg/dL (Negative); pH Urine 6.5 (5-7)
[2024-08-05 23:29] LABS: Add Urine Microscopic? YES; Bacteria Urine None Seen /hpf; Hyaline Casts Urine 0-4 /lpf; RBC Urine 0-2 /hpf (0-2); Squamous Epithelial Cell Urine 0-5 /hpf (0-5); WBC Urine 0-5 /hpf (0-5)
[2024-08-06 06:00] VITALS: BP 124/67; PULSE 76; RESP 19; TEMP 36.4; O2SAT 96
[2024-08-06] MEDS: aspirin 325 mg EC Tablet PO (08:17)
--- NOTE | 2024-08-06 09:44 | PC.NURSE ---
patient is refusing to take geodon this morning, reporting he believes that it is causing his leg to be swollen and discolored. leg is edematous and purplish. doppler studies have been done, pending results. will cont to monitor and watch for results and relay to physician
[2024-08-06 10:14] LABS: Basophils # 0.1 10^3/uL (0.0-0.1); Basophils % 0.8 %; Eosinophils # 0.1 10^3/uL (0.0-0.8); Eosinophils % 1.4 %; Hematocrit 42.7 % (37-53); Lymphocytes # 2.1 10^3/uL (0.8-4.8); Lymphocytes % 24.5 %; Mean Corpuscular HGB Conc 33.7 g/dL (30-55); Mean Corpuscular Hemoglobin 33.5 pg (27-33); Mean Corpuscular Volume 99.3 fl (82-101); Mean Platelet Volume 9.3 fL (7.4-10.4); Monocytes # 0.7 10^3/uL (0.2-0.9); Monocytes % 8.7 %; Neutrophils # 5.44 10^3/uL (1.8-7.7); Neutrophils % 63.9 %; Nucleated Red Blood Cells % 0 %; Platelet Count 339 10^3/cmm (157-399); Red Cell Distribution Width 12.9 % (12.1-15.1); White Blood Count 8.52 10^3/uL (3.29-11.43)
[2024-08-06 10:38] LABS: Alanine Aminotransferase 151 U/L (0-41); Alkaline Phosphatase 53 U/L (40-130); Anion Gap 14.3 (5-19); Aspartate Amino Transferase 60 U/L (0-40); Blood Urea Nitrogen 12 mg/dL (8-23); Calcium 8.9 mg/dL (8.5-10.5); Carbon Dioxide 25 mmol/L (22-29); Chloride 101 mmol/L (98-107); Globulin 2.7 g/dL (1.3-4.6); Glomerular Filtration Rate 136.5 mL/min (90-130); Glucose 119 mg/dL (65-115); Magnesium 1.9 mg/dL (1.7-2.3); Osmolality Calculated 283 mOsm/kg (285-295); Phosphorus 3.2 mg/dL (2.5-4.5); Potassium 4.3 mmol/L (3.5-5.1); Sodium 136 mmol/L (136-145); Total Bilirubin 0.4 mg/dL (0.15-1.2); Total Protein 6.7 g/dL (6.6-8.7)
[2024-08-06 10:58] LABS: INR 0.93 (0.8-1.2)
[2024-08-06 10:59] LABS: Partial Thromboplastin Time 26.2 SECONDS (23.9-36.7)
[2024-08-06] MEDS: ziprasidone hcl 20 mg Capsule PO (11:35)
[2024-08-06] MEDS: apixaban 5 mg Tablet 10 MG PO ×2 (12:53→21:31)
[2024-08-06 14:00] VITALS: BP 134/84; PULSE 86; RESP 16; TEMP 36.4; O2SAT 91
--- NOTE | 2024-08-06 15:23 | PC.NURSE ---
Dr. Soni would like to trial patient on Caplyta, however this is not a formulary medication. I contacted Dannie Jay, Outpatient South Asian History Professor and requested two capsules of 21 mg to trial patient on for [address] Soni's order. She verified and there is a small copay of $0.82, which will be billed to the patient. Dannie ordered the medication and it will arrive on 08/07/2024. Upon arrival, it will be delivered to the inpatient pharmacy and labeled as a home medication for patient's use. I informed nursing and Dr. Soni of this and will write the non-formulary order on behalf of Dr. Soni's verbal order when the medication arrives to ensure proper timing.
--- NOTE | 2024-08-06 16:05 | W.PM.NPUPNS ---
Subjective NPU Subjective: 64-year-old male with a history of psychosis admitted out of concern of unusual behavior and paranoia. The patient had refused his Geodon today stating that he felt that he was having an allergic reaction as he attributed the phlebitis in his leg to a side effect associated with his Geodon. He had not been aggressive on the milieu. He continued to endorse that he was the reincarnation of the Holy Spirit himself. He had reported that he had felt that there was some underlying plot that explained why he had been placed here in the hospital as he reported that he had been given disability despite not having seen a psychiatrist for nearly 12 years. He reports that he is allergic to all of the psychiatric medications particularly antipsychotics. Patient appeared to report that the drug paliperidone contained his name Ehsan and it was an antipsychotic that was Anti-Ehsan. Mental Status Exam MSE Comments: This is an overweight white male in hospital scrubs with limited grooming and some eye contact. No abnormal movements except for mild psychomotor retardation. Cooperative with exam with mild distress. Speech was more normal rate and volume. Mood described as allright. His affect was irritable. Thought process linear with less derailment. Thought content: Patient denied suicidal or homicidal ideation, there were clear ideas of reference and bizarre delusions about being the reincarnation of the Holy spirit. Attention and concentration were limited and memory appeared unreliable but none were formally tested. He is alert and oriented x 3. Insight, judgment and impulse control are all impaired. Vitals/I&O/Wt Last Vital Signs Temp 97.5 F L 08/06/24 14:00 Pulse 86 08/06/24 14:00 Resp 16 08/06/24 14:00 BP 134/84 08/06/24 14:00 Pulse Ox 91 08/06/24 14:00 O2 Del Method Room Air 08/06/24 14:00 Data NPU 08/06/24 10:03 08/06/24 10:03 A&P Assessment and plan (1) Acute psychosis: (2) Mojgan: Plan 63-year-old male presents with grandiosity and reported sleep disturbance with previous experience with antipsychotics currently refusing all medications and all labs as well. He will continue to require involuntary hospitalization with significant problems reported in his home environment according to multiple affidavits supporting need for treatment and evaluation. 1. Patient refusing Geodon secondary to allergy. In good jordan, will try different oral medication and begin Caplyta 21mg daily x2 days then increase to 42mg daily. 2. 3. Haldol/zyprexa for agitation. 4. Consider Carpio for mojgan. Abilify was started so he would be able to be placed on a long-acting injectable. And at that point with cooperation maybe add the lithium. 5. He had his 21-day hold hearing and he was placed on a hold allowing for involuntary treatment but he demanded a jury trial and so that process is moving forward and likely will not happen till sometime next week at the earliest. Until then we have given permission to treat involuntarily. Patient had a hearing that was at 11 AM today and in that hearing Recreation Superintendent Ivan resided and had to refuse herself because she is on the board of [facility] and so we will still be awaiting a health support specialist of being named and a jury being selected. PDMP PDMP Reviewed: Not Reviewed Involuntary Hold Information Hold Status: Legal Status: 96 Hour Hold Date/Time Hold Expires: Court ordered administrative hold Attestations NPU Medical Necessity Statement*: Inpatient hospitalization is medically necessary and?the clinically appropriate intervention at this time.? We will monitor/initiate medications and make changes as indicated.? The patient?s likely length of stay 6-9 days. Coding Level of Care Code Acute Code for Chg Fwd Diagnoses Acute psychosis F23 Mojgan F30.9
[2024-08-06] MEDS: ziprasidone hcl 60 mg Capsule PO (17:41)
[2024-08-06 20:07] VITALS: BP 138/79; PULSE 87; RESP 19; TEMP 36.9; O2SAT 95
--- NOTE | 2024-08-06 20:30 | P.PN_ITS ---
Subjective 2 Subjective: Patient was seen in his room. He continues to endorse some pain and tenderness in his left lower extremity. He has no other complaints on review of systems. When informed that he had a superficial vein thrombus, he continued to state that the superficial thrombophlebitis and superficial vein thrombus was due to the IM Geodon that he received. He tells me that he is the [place] of God. I informed him that he will need to be on Apixaban. Vitals/I&O/Wt Last Vital Signs Temp 98.4 F 08/06/24 20:07 Pulse 87 08/06/24 20:07 Resp 19 H 08/06/24 20:07 BP 138/79 08/06/24 20:07 Pulse Ox 95 08/06/24 20:07 O2 Del Method Room Air 08/06/24 14:00 Physical Exam 2 Narrative: Constitutional: GENERAL APPEARANCE: cooperative, comfortable and appears older than stated age; not combative, ill appearing, not frail appearing HENT: HEAD & SCALP: normocephalic and atraumatic; NOSE: external nose not normal EXTERNAL EAR: no external ears normal MOUTH: Normal oral and palatal mucosa present THROAT: posterior oropharynx normal Eye: PERRL, EOMI, normal conjunctiva b/l Neck: normal visual inspection, trachea midline, No anterior neck swelling, No tracheal deviation, No tracheostomy present, no submandibular swelling, Thyroid normal, cervical ROM normal Lymph: no cervical, supraclavicular LAD Resp: no use of accessory muscles, CTAB, no w/r/r Cardio: RRR, no m/r/g, or clicks. 2+ radial and DP pulses. GI: normoactive bowel sounds, non-tender, non-distended, no guarding, no rigidity, no rebound tenderness, no hepatosplenomegaly. : Deferred Back/Pelvis: Deferred Extremity: Left lower extremity with swelling & serpiginous erythema that is tender, but not particularly warmer than the R. LE. R. LE shows pitting edema to lower 1/3 of the tibia, but not swelling. darkened skin changes consistent w/ tortuous superficial and possibly veins . Neuro: AO to person, place and time. CN normal except as noted. Normal gait present. 5/5 motor strength present throughout. Normal motor muscle tone present throughout. No tremor noted. No motor abnormalities present. No motor fasciculations present Psych: APPEARANCE: A bit disheveled ATTITUDE: Yes calm and Yes engaged ACTIVITY/MOTOR BEHAVIOR: Yes appropriate eye contact SPEECH: Yes normal speech MOOD & AFFECT: elevated mood THOUGHT PROCESS:XXXX THOUGHT CONTENT: XXXX ATTENTION/CONCENTRATION: Yes attention grossly intact MEMORY/COGNITION: Data 08/06/24 10:03 08/06/24 10:03 A&P Assessment and plan (1) Superficial phlebitis and thrombophlebitis of left leg: Plan Mr. Shaw is a 64 year old man admitted on 07/18/2024 on an involuntary hold for acute psychosis and mojgan. The Psychiatrist consulted the Hospitalist Medicine service on 08/04/2024 for a serpiginous rash going up the L. lower extremity leg. Patient is convinced that it is due to Geodon. #L. LE superficial thrombophlebitis. #Superficial venous thrombus in the Greater Saphenous Vein of the R. LE. - Do NOT apply [place]. - His b/l LE venous duplex US shows a superficial venous thrombus in the Greater Saphenous Vein of the R. LE. - Spoke with the radiologist who mentioned that the superficial venous thrombus involved in the portion of the patient's calf, and extended close to the deep venous system, but it did not involve the deep vein system. Based on our discussion, including the close proximity of the superficial venous thrombus to the deep vein system, apixaban was started on the patient. The patient will need to be anticoagulated for 6 weeks. #b/l LE swelling. - Multiple potential etiologies: chronic venous stasis vs hepatic vs cardiac involvement. - Patient's UA and CMP do not suggest a renal involvement, but he has Transaminitis. Will discuss further evaluation with the Psychiatrist on 08/07/2024 Thank you for involving hospitalist medicine on this consult. We will continue to follow. PDMP PDMP Reviewed: Not Reviewed Attestations 2 Medical Necessity Statement*: The patient remains hospitalized by the psychiatrists for management of his mojgan and acute psychosis. Coding Level of Care Code 39037 Diagnoses Superficial phlebitis and thrombophlebitis of left leg I80.02
[2024-08-07 05:40] VITALS: BP 138/80; PULSE 76; RESP 16; TEMP 37.2; O2SAT 98
[2024-08-07] MEDS: apixaban 5 mg Tablet 10 MG PO ×2 (08:44→21:29)
[2024-08-07 14:00] VITALS: BP 124/72; PULSE 78; RESP 17; TEMP 36.5; O2SAT 95
--- NOTE | 2024-08-07 14:04 | USR_ITS ---
PROCEDURE INFORMATION: Exam: US Abdomen, Limited; Right Upper Quadrant Exam date and time: 08/07/2024 4:49 PM Age: 64 years old Clinical indication: Other: Elevated lfts; Additional info: Transaminitis TECHNIQUE: Imaging protocol: Real time ultrasound of the abdomen with image documentation. Limited exam focused on the right upper quadrant. COMPARISON: No relevant prior studies available. FINDINGS: Liver: Normal. No masses. Gallbladder wall 0.2 cm in thickness. Gallbladder: Normal. No gallstones. There is no gallbladder wall thickening. Biliary ducts: Normal. No stones. No dilation. Pancreas: Obscured by overlying bowel-gas. Right kidney: Normal. No mass. No hydronephrosis. 9.4 cm in longitudinal length. US/US abdomen limited [id number] IMPRESSION: 1. No acute sonographic findings or abnormalities. 2. Nonvisualization of the pancreas due to bowel-gas.
--- NOTE | 2024-08-07 18:12 | W.PM.NPUPNS ---
Subjective NPU Subjective: 64-year-old male with a history of psychosis admitted out of concern of unusual behavior and paranoia. The patient had refused Caplyta today stating that he did not have this problem and reported that he did not wish to take paliperidone as it was a direct reference to his name which contain the letter P. He had reported that he continued to remain concerned about his ears. He had received an ultrasound today of his liver and complained of having chest pain. He reported that the Geodon was to blame. He reports that he had the word of god on his side. Mental Status Exam MSE Comments: This is an overweight white male in hospital scrubs with limited grooming and some eye contact. No abnormal movements except for mild psychomotor retardation. Cooperative with exam with mild distress. Speech was more normal in rate and volume. Mood described as fine. His affect was irritable. Thought process linear with less derailment. Thought content: Patient denied suicidal or homicidal ideation, there were clear ideas of reference and bizarre delusions about being the reincarnation of the Holy spirit. Attention and concentration were limited and memory appeared unreliable but none were formally tested. He is alert and oriented x 3. Insight, judgment and impulse control are all impaired. Vitals/I&O/Wt Last Vital Signs Temp 97.7 F 08/07/24 14:00 Pulse 78 08/07/24 14:00 Resp 17 08/07/24 14:00 BP 124/72 08/07/24 14:00 Pulse Ox 95 08/07/24 14:00 O2 Del Method Room Air 08/06/24 14:00 Data NPU 08/06/24 10:03 08/06/24 10:03 A&P Assessment and plan (1) Acute psychosis: (2) Ruthy: Plan 63-year-old male presents with grandiosity and reported sleep disturbance with previous experience with antipsychotics currently refusing all medications and all labs as well. He will continue to require involuntary hospitalization with significant problems reported in his home environment according to multiple affidavits supporting need for treatment and evaluation. 1. Patient refusing caplyta oral today, will order Asimtufi 960mg to be given as soon as available. 2. 3. Haldol/zyprexa for agitation. 4. Consider Eulonia for ruthy. Abilify was started so he would be able to be placed on a long-acting injectable. And at that point with cooperation maybe add the lithium. 5. He had his 21-day hold hearing and he was placed on a hold allowing for involuntary treatment but he demanded a jury trial and so that process is moving forward and likely will not happen till sometime next week at the earliest. Until then we have given permission to treat involuntarily. Patient had a hearing that was at 11 AM today and in that hearing Migratory Farm Hand Ivan resided and had to refuse herself because she is on the board of [facility] and so we will still be awaiting a manager med surg of being named and a jury being selected. PDMP PDMP Reviewed: Not Reviewed Involuntary Hold Information Hold Status: Legal Status: 96 Hour Hold Date/Time Hold Expires: Court ordered administrative hold Attestations NPU Medical Necessity Statement*: Inpatient hospitalization is medically necessary and?the clinically appropriate intervention at this time.? We will monitor/initiate medications and make changes as indicated.? The patient?s likely length of stay 6-9 days. Coding Level of Care Code Acute Code for Chg Fwd Diagnoses Acute psychosis F23 Ruthy F30.9
[2024-08-07 19:40] VITALS: BP 114/73; PULSE 88; RESP 18; TEMP 37; O2SAT 95
--- NOTE | 2024-08-07 22:09 | P.PN_ITS ---
Subjective 2 Subjective: I spoke with the patient's psychiatrist today regarding the patient's transaminitis. The psychiatrist recommended evaluating the patient's transaminitis. The patient was seen in his room lying on the bed. He states that the pain in his left lower extremity is improving. He continues to reiterate that the superficial vein thrombus in his left lower extremity is due to the Geodon injection that he had received. He showed me a big package that contained documents meant for a [place] court. 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 He then tells me that he is the [place] of God. To that extent, he tells me that some of the medication that he is getting, such as Peridone means Ehsan done because his name is Ehsan. He had a similar analogy with the medication called Caplyta and how it is meant to harm him. I informed him that he had mildly elevated LFTs, and that we would need to further evaluated to make sure that his liver was not involved in his bilateral lower extremity swelling. He initially felt that the medications that he was getting were the potential cause of his elevated LFTs. I acknowledged that while medications could be the potential cause of elevated LFTs, it was important to make sure that he did not have other potential causes for his elevated LFTs, including hepatitis, including his acknowledging that he has a history of drinking between his 20s and his 40s, or taking supplements such as Echinacea. He then agreed to have further studies done to evaluate his LFTs, because he had a friend who had hepatitis, and he wanted to make sure that he did not have hepatitis. Vitals/I&O/Wt Last Vital Signs Temp 98.6 F 08/07/24 19:40 Pulse 88 08/07/24 19:40 Resp 18 08/07/24 19:40 BP 114/73 08/07/24 19:40 Pulse Ox 95 08/07/24 19:40 O2 Del Method Room Air 08/06/24 14:00 Physical Exam 2 Narrative: Constitutional: GENERAL APPEARANCE: cooperative, comfortable and appears older than stated age; not combative, ill appearing, not frail appearing HENT: HEAD & SCALP: normocephalic and atraumatic; NOSE: external nose not normal EXTERNAL EAR: no external ears normal MOUTH: Normal oral and palatal mucosa present THROAT: posterior oropharynx normal Eye: PERRL, EOMI, normal conjunctiva b/l Neck: normal visual inspection, trachea midline, No anterior neck swelling, No tracheal deviation, no submandibular swelling, Thyroid normal, cervical ROM normal Lymph: no cervical, supraclavicular LAD Resp: no use of accessory muscles, CTAB, no w/r/r Cardio: RRR, no m/r/g, or clicks. 2+ radial and DP pulses. GI: normoactive bowel sounds, non-tender, non-distended, no guarding, no rigidity, no rebound tenderness, no hepatosplenomegaly. : Deferred Back/Pelvis: Deferred Extremity: Left lower extremity with swelling & serpiginous erythema that is tender, but not particularly warmer than the R. LE. R. LE shows pitting edema to lower 1/3 of the tibia, but not swelling. darkened skin changes consistent w/ tortuous superficial and possibly veins . Neuro: AO to person, place and time. CN normal except as noted. Normal gait present. 5/5 motor strength present throughout. Normal motor muscle tone present throughout. No tremor noted. No motor abnormalities present. No motor fasciculations present Psych: APPEARANCE: A bit disheveled ATTITUDE: Yes calm and Yes engaged ACTIVITY/MOTOR BEHAVIOR: Yes appropriate eye contact SPEECH: Yes normal speech MOOD & AFFECT: elevated mood THOUGHT PROCESS:XXXX THOUGHT CONTENT: XXXX ATTENTION/CONCENTRATION: Yes attention grossly intact MEMORY/COGNITION: Data 08/06/24 10:03 08/06/24 10:03 A&P Assessment and plan (1) Superficial phlebitis and thrombophlebitis of left leg: Plan Mr. Shaw is a 64 year old man admitted on 07/18/2024 on an involuntary hold for acute psychosis and mojgan. The Psychiatrist consulted the Hospitalist Medicine service on 08/04/2024 for a serpiginous rash going up the L. lower extremity leg. Patient is convinced that it is due to Geodon. #L. LE superficial thrombophlebitis. #Superficial venous thrombus in the Greater Saphenous Vein of the R. LE. - Do NOT apply [place]. - His b/l LE venous duplex US shows a superficial venous thrombus in the Greater Saphenous Vein of the R. LE. - I Spoke with the radiologist on 08/06/2024. He, the radiologist, mentioned that the superficial venous thrombus involved in the portion of the patient's calf, and extended close to the deep venous system, but it did not involve the deep vein system. Based on our discussion, including the close proximity of the superficial venous thrombus to the deep vein system, apixaban was started on the patient. - The patient will need to be anticoagulated for 6 weeks. #b/l LE swelling. - Multiple potential etiologies: chronic venous stasis vs hepatic vs cardiac involvement. - Patient's UA and CMP do not suggest a renal involvement, but he has Transaminitis. #Transaminitis - Due to multifactorial etiologies. - Based on discussion with the patient's psychiatrist, who encouraged for the evaluation, of his transaminitis, ordered US of the RUQ and comprehensive hepatitis panel. - Will also need to periodically monitor the patient's LFTs. Thank you for involving hospitalist medicine on this consult. We will continue to follow. PDMP PDMP Reviewed: Not Reviewed Attestations 2 Medical Necessity Statement*: The patient remains hospitalized by the psychiatrist for his acute psychosis and mojgan. Diagnoses Superficial phlebitis and thrombophlebitis of left leg I80.02
[2024-08-08 04:19] VITALS: BP 137/92; PULSE 78; RESP 16; TEMP 36.3; O2SAT 96
[2024-08-08] MEDS: apixaban 5 mg Tablet 10 MG PO ×2 (07:54→21:28)
[2024-08-08 09:04] LABS: Alanine Aminotransferase 165 U/L (0-41); Alkaline Phosphatase 55 U/L (40-130); Anion Gap 14.6 (5-19); Aspartate Amino Transferase 59 U/L (0-40); Blood Urea Nitrogen 13 mg/dL (8-23); Calcium 9.4 mg/dL (8.5-10.5); Carbon Dioxide 27 mmol/L (22-29); Chloride 101 mmol/L (98-107); Creatinine Clr Calc Pharmacy 140.9571; Globulin 2.3 g/dL (1.3-4.6); Glomerular Filtration Rate 114.3 mL/min (90-130); Glucose 102 mg/dL (65-115); Osmolality Calculated 286 mOsm/kg (285-295); Potassium 4.6 mmol/L (3.5-5.1); Sodium 138 mmol/L (136-145); Total Bilirubin 0.4 mg/dL (0.15-1.2); Total Protein 6.3 g/dL (6.6-8.7)
[2024-08-08 09:17] LABS: Hepatitis A Antibody IgM Non-Reactive (Nonreactive); Hepatitis B Core IgM Non-Reactive (Nonreactive); Hepatitis B Surface Antigen Non-Reactive (Nonreactive); Hepatitis C Virus Antibody Non-Reactive (Nonreactive)
--- NOTE | 2024-08-08 11:56 | PM.PN ---
Subjective Medications: Medication Review Details: No acute events overnight. Patient seen at his bedside, has no new complaints. He reports feeling like there is wax in his left ear. He denies hearing loss or pain. Vitals/I&O/Wt Last Vital Signs Temp 97.4 F L 08/08/24 04:19 Pulse 78 08/08/24 04:19 Resp 16 08/08/24 04:19 BP 137/92 08/08/24 04:19 Pulse Ox 96 08/08/24 04:19 O2 Del Method Room Air 08/06/24 14:00 Physical Exam Narrative: General -Awake, alert, no acute distress HEENT-normocephalic, atraumatic, neck is supple Lungs-clear to auscultation bilaterally, no wheezes or crackles CVS -S1-S2, regular rate and rhythm Abdomen -soft, nontender, normal bowel sounds Extremities-Left lower extremity with swelling & serpiginous erythema - tender, but not particularly warmer than the R. . R. LE - + edema Neurology -no gross focal deficits Data 08/06/24 10:03 08/08/24 08:24 A&P Assessment and plan (1) Superficial phlebitis and thrombophlebitis of left leg: (2) Ruthy: (3) Acute psychosis: Plan # Left lower extremity superficial venous thrombosis in the greater saphenous vein - Per reports, thrombus is close to the deep venous system but no DVT seen - Patient started on Eliquis - He will require a 45 days to 3-month course depending on progression - Outpatient hematology follow-up to determine duration of anticoagulation # Elevated transaminases - Patient has normal liver on ultrasound - Hepatitis panel is pending -Outpatient GI follow-up # Bilateral lower extremity swelling -Check echo #Feeling like wax in left ear -Otoscopic evaluation shows wax in box ears -Wax eardrops if available -Outpatient ENT follow up PDMP PDMP Reviewed: Not Reviewed Attestations Medical Necessity Statement*: The patient remains hospitalized by the psychiatrist for his acute psychosis and ruthy. Coding Level of Care Code Acute Code for [facility] Fwd Diagnoses Superficial phlebitis and thrombophlebitis of left leg I80.02 Ruthy F30.9 Acute psychosis F23
--- NOTE | 2024-08-08 12:12 | USCV_ITS ---
Ehsan Shaw Age: 64 Gender: M : 1960 Exam Date: 08/08/2024 19:35 Ordering Phys: Alyssa Camara MD Technologist: BANDAR Exam Location[place] [facility] [place] Indication: BLE edema BP: 124 / 75 HR: 69 Rhythm: Sinus Technical Quality: Adequate MEASUREMENTS (Male / Female) Normal Values 2D ECHO LV Diastolic Diameter PLAX 4.4 cm 4.2 - 5.9 / 3.9 - 5.3 cm IVS Diastolic Thickness 1.1 cm 0.6 - 1.0 / 0.6 - 0.9 cm IVS Systolic Thickness 1.8 cm LVPW Diastolic Thickness 1.1 cm 0.6 - 1.0 / 0.6 - 0.9 cm LVPW Systolic Thickness 1.4 cm LVOT Diameter 1.8 cm LV Ejection Fraction 2D Teich 58.6 % LV Ejection Fraction MOD 4C 57.3 % LV Ejection Fraction MOD 2C 55.9 % LV Ejection Fraction 2C AL 56.2 % LA Diameter 4.4 cm Aorta at Sinotubular Diameter 3.0 cm IVC Diameter 1.3 cm M-MODE LA Ao Ratio MM 1.3 AV Cusp Separation MM 2.1 cm DOPPLER AV Peak Velocity 162.0 cm/s LVOT Peak Velocity 146.0 cm/s AV Area Cont Eq vti 2.0 cm squared AV Area Cont Eq pk 2.3 cm squared MV Peak Velocity 118.0 cm/s MV Area PHT 3.7 cm squared Mitral E to A Ratio 1.5 TV Peak E Velocity 54.0 cm/s PV Peak Velocity 111.0 cm/s FINDINGS Left Ventricle Normal left ventricular size, systolic function and wall thickness, with no regional wall motion abnormalities. Left ventricular ejection fraction is estimated at 60 %. Grade II/IV diastolic dysfunction, moderately elevated filling pressures. Right Ventricle The right ventricle is normal in size and function. Right Atrium The right atrium is normal in size. Left Atrium The left atrium is normal in size. Mitral Valve Structurally normal mitral valve without significant stenosis or prolapse. There is no mitral regurgitation. Aortic Valve Moderate aortic valve calcification. No aortic valve stenosis. Trace aortic valve regurgitation. Tricuspid Valve Trace tricuspid valve regurgitation. Pulmonic Valve Mild pulmonary valve regurgitation. Pericardium Normal pericardium without effusion. Aorta Normal ascending aorta dimension. IVC The inferior vena cava appears normal. CONCLUSIONS Normal left ventricular size, systolic function and wall thickness, with no regional wall motion abnormalities. Left ventricular ejection fraction is estimated at 60 %. Grade II/IV diastolic dysfunction, moderately elevated filling pressures. There is no pericardial effusion. No significant valve abnormalities. Right atrial pressure is around 5 mm of mercury. Sheryl Rincon MD (Electronically Signed) Final Date: 08 August 2024 20:25 S
[2024-08-08] MEDS: ARIPIPRAZOLE 960 EACH IM (12:30)
--- NOTE | 2024-08-08 12:51 | PC.NURSE ---
Code 10 called d/t pt. was unwilling to take his Abilify inj. Pt. verbally cursed and called staff Radha, but there was no physical altercation that took place.
[2024-08-08 14:00] VITALS: BP 124/75; PULSE 84; RESP 18; TEMP 36.4; O2SAT 98
--- NOTE | 2024-08-08 16:36 | W.PM.NPUPNS ---
Subjective NPU Subjective: 64-year-old male with a history of schizophrenia currently on a court approved hold. The patient had refused Caplyta and was given Abilify IM Asimtufi 960mg today. The patient reported no side effects from this medication. He continued to remain paranoid and hostile of others intentions. He was agreeable to continued use of Eliquis to prevent thrombosis. He remained irritable and continued to state that his rights were being taken from him. He had continued to display concerns that he was within his rights to question parents decisions regarding their own children as he had stated that he had the power of the Holy Spirit on his side. Mental Status Exam MSE Comments: This is an overweight white male in hospital scrubs with limited grooming and some eye contact. No abnormal movements except for mild psychomotor retardation. He was minimally cooperative with exam with mild distress. Speech was more normal in rate and volume. Mood described as allright. His affect remained expansive, and irritable at times. Thought process linear with less derailment. Thought content: Patient denied suicidal or homicidal ideation, there were clear ideas of reference and bizarre delusions about being the reincarnation of the Holy spirit. Attention and concentration were limited and memory appeared unreliable but none were formally tested. He is alert and oriented x 3. Insight, judgment and impulse control are all impaired. Vitals/I&O/Wt Last Vital Signs Temp 97.4 F L 08/08/24 04:19 Pulse 78 08/08/24 04:19 Resp 16 08/08/24 04:19 BP 137/92 08/08/24 04:19 Pulse Ox 96 08/08/24 04:19 O2 Del Method Room Air 08/06/24 14:00 Data NPU 08/06/24 10:03 08/08/24 08:24 A&P Assessment and plan (1) Acute psychosis: (2) Ruthy: Plan 63-year-old male presents with grandiosity and reported sleep disturbance with previous experience with antipsychotics currently refusing all medications and all labs as well. He will continue to require involuntary hospitalization with significant problems reported in his home environment according to multiple affidavits supporting need for treatment and evaluation. 1. D/C Caplyta, Abilify Asimitufi given today at 960mg and patient likely to receive 400mg Abilify Maintenjovanna antnuez as patient remains noncompliant with oral medication and the combination of the two [place] Abilify may facilitate therapeutic levels faster without needing many days of oral abilify. 2. d/c caplyta. 3. Haldol/zyprexa for agitation. 4. Consider [place] for ruthy. Abilify was started so he would be able to be placed on a long-acting injectable. And at that point with cooperation maybe add the lithium. 5. He had his 21-day hold hearing and he was placed on a hold allowing for involuntary treatment but he demanded a jury trial and so that process is moving forward and likely will not happen till sometime next week at the earliest. Until then we have given permission to treat involuntarily. Patient had a hearing that was at 11 AM today and in that hearing Hyperion Administrator Ivan resided and had to refuse herself because she is on the board of [facility] and so we will still be awaiting a airline captain of being named and a jury being selected. PDMP PDMP Reviewed: Not Reviewed Involuntary Hold Information Hold Status: Legal Status: 96 Hour Hold Date/Time Hold Expires: Court ordered administrative hold Attestations NPU Medical Necessity Statement*: Inpatient hospitalization is medically necessary and?the clinically appropriate intervention at this time.? We will monitor/initiate medications and make changes as indicated.? The patient?s likely length of stay 3-5 days. Coding Level of Care Code Acute Code for [facility] Fwd Diagnoses Acute psychosis F23 Ruthy F30.9
[2024-08-08 21:19] VITALS: BP 119/76; PULSE 72; RESP 18; TEMP 36.6; O2SAT 97
[2024-08-08] MEDS: multivitamin therapeutic Tablet 1 TAB PO (21:28)
[2024-08-09 06:00] VITALS: BP 123/84; PULSE 79; RESP 18; TEMP 36.8; O2SAT 93
[2024-08-09] MEDS: apixaban 5 mg Tablet 10 MG PO ×2 (08:55→20:19)
[2024-08-09] MEDS: multivitamin therapeutic Tablet 1 TAB PO (08:56)
--- NOTE | 2024-08-09 10:39 | PC.NURSE ---
Dr. Soni gave a v/o for Abilify Maintena 400mg IM for today.
[2024-08-09] MEDS: ARIPiprazole Maintena 400 MG IM (11:43)
[2024-08-09 14:00] VITALS: BP 122/69; PULSE 80; RESP 18; TEMP 36.6; O2SAT 96
--- NOTE | 2024-08-09 14:32 | P.PN_ITS ---
Subjective 2 Subjective: No acute events overnight. Patient seen at his bedside, has no new complaints. He denies chest pain, SOB. He reports that LE swelling is somewhat improved . Vitals/I&O/Wt Last Vital Signs Temp 98.2 F 08/09/24 06:00 Pulse 79 08/09/24 06:00 Resp 18 08/09/24 06:00 BP 123/84 08/09/24 06:00 Pulse Ox 93 08/09/24 06:00 O2 Del Method Room Air 08/09/24 06:00 Physical Exam 2 Narrative: General -Awake, alert, no acute distress HEENT-normocephalic, atraumatic, neck is supple Lungs-clear to auscultation bilaterally, no wheezes or crackles CVS -S1-S2, regular rate and rhythm Abdomen -soft, nontender, normal bowel sounds Extremities-Left lower extremity with swelling & serpiginous erythema - tender, but not particularly warmer than the R- improved Neurology -no gross focal deficits Data 08/06/24 10:03 08/08/24 08:24 A&P Assessment and plan (1) Superficial phlebitis and thrombophlebitis of left leg: (2) Ruthy: (3) Acute psychosis: Plan # Left lower extremity superficial venous thrombosis in the greater saphenous vein - Per reports, thrombus is close to the deep venous system but no DVT seen - Patient started on Eliquis - He will require a 45 days to 3-month course depending on progression - Outpatient hematology follow-up to determine duration of anticoagulation # Elevated transaminases - Patient has normal liver on ultrasound - Hepatitis panel - non reactive -Outpatient GI follow-up #Bilateral lower extremity swelling -Swelling improved -TTE - normal EF, diastolic dysfunction -Outpatient cardiology follow up #Feeling like wax in left ear -Otoscopic evaluation shows wax in both ears -Wax eardrops if available -Outpatient ENT follow up Hospitalist team will sign off. Thank you for involving us in the care of of Mr Ehsan Shaw . Please call with questions. PDMP PDMP Reviewed: Not Reviewed Attestations 2 Medical Necessity Statement*: The patient remains hospitalized by the psychiatrist Coding Level of Care Code Acute Code for [facility] Fwd Diagnoses Superficial phlebitis and thrombophlebitis of left leg I80.02 Ruthy F30.9 Acute psychosis F23
--- NOTE | 2024-08-09 16:50 | P.NPUPN_ITS ---
Subjective NPU 2 Subjective: 64-year-old male with a history of schiz ophrenia currently on a court approved hold. The patient received intramuscular Abilify Maintena 400mg IM this afternoon. He had reported that he had been feeling a little better. He continued to spend a lot of time writing that appeared to be religiously oriented in nature. He had reported that he had felt that his pain in his legs were better as he had been compliant with his anticoagulant. He was redirectable on the milieu. There was no acts of aggression noted. He was able to go to the court house today and was able to arrange for a court hearing with a jury scheduled for 08/12/24. The patient reported adequate sleep. He did not endorse any side effects from his medication regimen. Mental Status Exam 2 MSE Comments: This is an overweight white male in hospital scrubs with limited grooming and some eye contact. No abnormal movements except for mild psychomotor retardation. He was minimally cooperative with exam with mild distress. Speech was normal in rate and volume. Mood described as pretty good. His affect was slightly irritable. Thought process linear and logical. Thought content: Patient denied suicidal or homicidal ideation, there were clear ideas of reference and bizarre delusions about being the reincarnation of the Holy spirit. Attention and concentration were limited and memory appeared unreliable but none were formally tested. He is alert and oriented x 3. Insight was poor. Judgment was limited. Impulse control was fair. Vitals/I&O/Wt Last Vital Signs Temp 98.2 F 08/09/24 06:00 Pulse 79 08/09/24 06:00 Resp 18 08/09/24 06:00 BP 123/84 08/09/24 06:00 Pulse Ox 93 08/09/24 06:00 O2 Del Method Room Air 08/09/24 06:00 Data NPU 08/06/24 10:03 08/08/24 08:24 A&P Assessment and plan (1) Acute psychosis: (2) Ruthy: Plan 64-year-old male presents with grandiosity and reported sleep disturbance with previous experience with antipsychotics currently refusing all medications and all labs as well. He will continue to require involuntary hospitalization with significant problems reported in his home environment according to multiple affidavits supporting need for treatment and evaluation. 1. D/C Caplyta, Abilify Asimitufi given at 960mg on 08/08/24 and Abilify Maintena 400mg given on 08/09/24 with steady state levels of abilify expected within 24-48 hours. 2. d/c caplyta. 3. Haldol/zyprexa for agitation. 4. Consider [place] for ruthy. Abilify was started so he would be able to be placed on a long-acting injectable. And at that point with cooperation maybe add the lithium. 5. He had his 21-day hold hearing and he was placed on a hold allowing for involuntary treatment but he demanded a jury trial and so that process is moving forward and likely will not happen till sometime next week at the earliest. Until then we have given permission to treat involuntarily. Patient had a hearing that was at 11 AM today and in that hearing Cloth Cutting Machine Operator Ivan resided and had to refuse herself because she is on the board of [facility] and so we will still be awaiting a balloon design printer of being named and a jury being selected. PDMP PDMP Reviewed: Not Reviewed Involuntary Hold Information 2 Hold Status: Legal Status: 96 Hour Hold Date/Time Hold Expires: Court ordered administrative hold Attestations NPU 2 Medical Necessity Statement*: Inpatient hospitalization is medically necessary and?the clinically appropriate intervention at this time.? We will monitor/initiate medications and make changes as indicated.? The patient?s likely length of stay 3-5 days. Coding Level of Care Code Acute Code for Chg Fwd Diagnoses Acute psychosis F23 Ruthy F30.9
[2024-08-09 20:50] VITALS: BP 123/83; PULSE 83; RESP 18; TEMP 36.9; O2SAT 94
[2024-08-10 06:00] VITALS: BP 109/70; PULSE 71; RESP 21; TEMP 36.8; O2SAT 96
[2024-08-10] MEDS: multivitamin therapeutic Tablet 1 TAB PO (08:56)
[2024-08-10] MEDS: apixaban 5 mg Tablet 10 MG PO ×2 (08:56→20:33)
[2024-08-10 14:00] VITALS: BP 137/73; PULSE 84; RESP 18; TEMP 36.4; O2SAT 96
--- NOTE | 2024-08-10 16:19 | P.NPUPN_ITS ---
Subjective NPU 2 Subjective: 64-year-old male with schizophrenia with a rule out of schizoaffective disorder admitted with psychosis. The patient had appeared to tolerate the injections without any significant consequence. He reported no side effects and stated that he was feeling better. He reported adequate sleep. He had appeared less preoccupied by his writings and thoughts about being in Dr. Needed with the zamarripa of the holy ghost. The patient was pleasant and there was no evidence of aggression on the milieu. He had continued to reiterate his thoughts that he would likely not take any medications particularly antipsychotics when discharged. Mental Status Exam 2 MSE Comments: This is an overweight white male in hospital scrubs with limited grooming and some eye contact. No abnormal movements except for mild psychomotor retardation. He was pleasant and cooperative with exam with no acute distress. Speech was normal in rate and volume. Mood described as okay. His affect was euthymic. Thought process was linear and logical. Thought content: Patient denied suicidal or homicidal ideation, there were still some ideas of reference and bizarre delusions about being the reincarnation of the Holy spirit. Attention and concentration were limited and memory appeared unreliable but none were formally tested. He is alert and oriented x 3. Insight was poor. Judgment was improving. Impulse control was fair. Vitals/I&O/Wt Last Vital Signs Temp 97.5 F L 08/10/24 14:00 Pulse 84 08/10/24 14:00 Resp 18 08/10/24 14:00 BP 137/73 08/10/24 14:00 Pulse Ox 96 08/10/24 14:00 O2 Del Method Room Air 08/10/24 06:00 Data NPU 08/06/24 10:03 08/08/24 08:24 A&P Assessment and plan (1) Acute psychosis: (2) Ruthy: Plan 64-year-old male presents with grandiosity and reported sleep disturbance with previous experience with antipsychotics currently refusing all medications and all labs as well. He will continue to require involuntary hospitalization with significant problems reported in his home environment according to multiple affidavits supporting need for treatment and evaluation. 1. D/C Caplyta, Abilify Asimitufi given at 960mg on 08/08/24 and Abilify Maintena 400mg given on 08/09/24 with steady state levels of abilify expected within 24-48 hours. 2. d/c caplyta. 3. Haldol/zyprexa for agitation. 4. Consider [place] for ruthy. Abilify was started so he would be able to be placed on a long-acting injectable. And at that point with cooperation maybe add the lithium. 5. Hopeful that patient can now be discharged on 08/12/24, will petition court to allow this. PDMP PDMP Reviewed: Not Reviewed Involuntary Hold Information 2 Hold Status: Legal Status: 96 Hour Hold Date/Time Hold Expires: Court ordered administrative hold Attestations NPU 2 Medical Necessity Statement*: Inpatient hospitalization is medically necessary and?the clinically appropriate intervention at this time.? We will monitor/initiate medications and make changes as indicated.? The patient?s likely length of stay 2 days. Coding Level of Care Code Acute Code for [facility]g Fwd Diagnoses Acute psychosis F23 Ruthy F30.9
[2024-08-10 19:45] VITALS: BP 132/68; PULSE 92; RESP 18; TEMP 36.5; O2SAT 98
[2024-08-11 06:00] VITALS: BP 139/79; PULSE 70; RESP 18; TEMP 36.3; O2SAT 97; BMI 32.6
[2024-08-11] MEDS: multivitamin therapeutic Tablet 1 TAB PO ×3 (08:47→08:57)
[2024-08-11] MEDS: apixaban 5 mg Tablet 10 MG PO ×2 (08:52→21:31)
--- NOTE | 2024-08-11 13:11 | P.NPUPN_ITS ---
Subjective NPU 2 Subjective: 64-year-old male with schizophrenia with a rule out of schizoaffective disorder admitted with psychosis. The patient appeared much less hostile and less paranoid. He reported no side effects from his medications. He had reported adequate sleep. He was pleasant and cooperative on the milieu. He appeared less preoccupied by his writings that had suggested that he had special abilities and was the reincarnation of the Holy Spirit. Mental Status Exam 2 MSE Comments: This is an overweight white male in hospital scrubs with limited grooming and some eye contact. No abnormal movements except for mild psychomotor retardation. He was pleasant and cooperative with exam with no acute distress. Speech was normal in rate and volume. Mood described as better. His affect was euthymic. Thought process was linear and logical. Thought content: Patient denied suicidal or homicidal ideation, there was diminished ideas of reference. Attention and concentration were limited and memory appeared unreliable but none were formally tested. He is alert and oriented x 3. Insight was poor. Judgment was improving. Impulse control was fair. Vitals/I&O/Wt Last Vital Signs Temp 97.4 F L 08/11/24 06:00 Pulse 70 08/11/24 06:00 Resp 18 08/11/24 06:00 BP 139/79 08/11/24 06:00 Pulse Ox 97 08/11/24 06:00 O2 Del Method Room Air 08/11/24 06:00 Weight last 48 hrs Weight 109.316 kg Data NPU 08/06/24 10:03 08/08/24 08:24 A&P Assessment and plan (1) Acute psychosis: (2) Ruthy: Plan 64-year-old male presents with grandiosity and reported sleep disturbance with previous experience with antipsychotics currently refusing all medications and all labs as well. He will continue to require involuntary hospitalization with significant problems reported in his home environment according to multiple affidavits supporting need for treatment and evaluation. 1. D/C Caplyta, Abilify Asimitufi given at 960mg on 08/08/24 and Abilify Maintena 400mg given on 08/09/24 with steady state levels of abilify expected within 24-48 hours. 2. d/c caplyta. 3. Haldol/zyprexa for agitation.. 4. Hopeful that patient can now be discharged on 08/12/24, will petition court to allow this tommorow. PDMP PDMP Reviewed: Not Reviewed Involuntary Hold Information 2 Hold Status: Legal Status: 96 Hour Hold Date/Time Hold Expires: Court ordered administrative hold Attestations NPU 2 Medical Necessity Statement*: Inpatient hospitalization is medically necessary and?the clinically appropriate intervention at this time.? We will monitor/initiate medications and make changes as indicated.? The patient?s likely length of stay 1-2 days. Coding Level of Care Code Acute Code for Chg Fwd Diagnoses Acute psychosis F23 Ruthy F30.9
[2024-08-11 14:00] VITALS: BP 137/78; PULSE 81; RESP 17; TEMP 35.7; O2SAT 96
[2024-08-11 19:43] VITALS: BP 115/62; PULSE 74; RESP 18; TEMP 36.6; O2SAT 97
[2024-08-12 06:00] VITALS: BP 123/72; PULSE 84; RESP 18; TEMP 36.4; O2SAT 96
[2024-08-12] MEDS: apixaban 5 mg Tablet 10 MG PO (07:55)
[2024-08-12] MEDS: multivitamin therapeutic Tablet 1 TAB PO (07:56)
--- NOTE | 2024-08-12 09:12 | PC.NURSE ---
Pt reports that he slept fair He reports anxiety/depression a 0/10. No reports of SI/HI or hallucinations. Pain in his Lt leg is a 1/10. Almost no redness. He is calm and cooperative during his assessment.
[2024-08-12 13:22] VITALS: BP 123/72; PULSE 84; RESP 18; TEMP 36.4; O2SAT 96
--- NOTE | 2024-08-12 13:31 | DCPLANNER ---
IMM completed 08/12/2024 @ 7146 and pt given a copy of rights.
[2024-08-12 14:00] VITALS: BP 139/83; PULSE 83; RESP 17; TEMP 36.7; O2SAT 93
--- NOTE | 2024-08-12 14:48 | P.NPUDS_ITS ---
Diagnoses at Discharge Discharge Diagnosis (1) Acute psychosis: Status: Acute (2) Mojgan: Status: Acute Reason for Visit Reason for Visit: 96 Hold Brief History: History of Present Illness Ehsan Shaw is a 63 year old male who presented to the emergency department at [facility] brought in by law enforcement on a 96-hour hold with multiple affidavits filed in [facility]. These affidavits were reviewed by the development writer of this note. Patient was admitted to the neuropsychiatric unit for further evaluation and treatment. The affidavits report that the patient is had numerous complaints against him regarding aggressive behavior towards children and various parents while reporting that he was the parent of all these children. He had also made a statement stating that he was the word of God and was God and flash on earth along with being the Holy Spirit and ghost. Furthermore, the patient had been disrupting others and was seen on video jumping and running into a barrel roll in the ground. The patient had apparently stated to others that they were not real and states to others that he is a God. Patient was a poor historian but stated that he was allergic to all antipsychotic medications and was here to write all of the wrongs committed against him. Patient had described having special zamarripa and abilities. He had refused to answer any questions regarding his past history or any previous hospitalizations. He had reported that he was working on a plan that would prove that he was God and had been searching through the the Bible while writing incessantly on paper. Psychiatric history: Unknown, he had reported having previously been on antipsychotics. Medical history: None reported Allergies: No known drug allergies Substance abuse history: None reported Legal history: Unknown history: None Current medications: None Family psychiatric history: Unknown Social history: He did not report being . He had refused answer any questions regarding whether he had children or where he was born. He had reported his previous whereabouts as being in [facility]. Hospital Course Hospital Course The patient was admitted with significant evidence of mojgan and psychosis. He had been placed on a 96-hour hold and the patient had requested that a hearing for staying up to 21 days to be done in front of a jury. The captain cannery tender had indicated that he would do his best to have a trial by jury. In the interim, until the court hearing could be rescheduled with a jury, the patient was to stay here on the psychiatric facility and was granted the power to utilized forcible medications. Patient had been started on specific antipsychotic agents and complained of having an allergic reaction despite there being no evidence of any allergies. He had unfortunately had superficial venous phlebitis and r equired the medicine team to evaluate him and he was ultimately given Eliquis with a resolution in his symptoms prior to discharge. He was agreeable to following up with a cigarette inspector as recommended by the medicine team. He had remained compliant with taking his Eliquis without any issue. Unfortunately, he had refused any oral psychotropic medications. He had reported that these medications were not necessary as he did not suffer from psychosis. Ultimately, the patient was given aripiprazole intramuscularly 960 mg on 08/08/2024 followed by aripiprazole and intramuscularly 400 mg on 08/09/2024 with no need for oral Abilify for up to 55 days after discharge. He did show improvement shortly after receiving these medications. During the hospitalization, the patient had routine laboratory studies which were within normal limits except for a few outliers.? Additionally, there was a general medical evaluation which was also within normal limits and revealed no new acute processes.? At the time of discharge, lethality was denied and psychosis was resolving.? Mood and anxiety were well managed.? The patient endorsed a plan to avoid all drugs of abuse and follow up with the aftercare recommendations of the treatment team.? The patient was evaluated and deemed to be absent credible lethality and had achieved the maximum benefit from an inpatient hospitalization, and so was discharged. ? Involuntary Hold Information Hold Status: Legal Status: 96 Hour Hold Date/Time Hold Expires: Court ordered administrative hold Mental Status Exam MSE Comments: This is an overweight white male in hospital scrubs with improved grooming and fair eye contact. No abnormal involuntary motor movements appreciated. He was pleasant and cooperative with exam with no acute distress. Speech was normal in rate and volume. Mood described as better. His affect was euthymic. Thought process was linear and logical. Thought content: Patient denied suicidal or homicidal ideation, there was diminished ideas of reference and decreased grandiosity appreciated on discharge. Attention and concentration were limited and memory appeared unreliable but none were formally tested. He is alert and oriented x 3. Insight was poor. Judgment was improving. Impulse control was fair. Discharge Data Studies Completed and Pending: Completed Studies During Hospitalization Category [place] [id number] Routin e Ultrasound 08/05/24 11:23 Completed CV. echo complete * [id number] Routine Ultrasound 08/08/24 12:12 Completed [place] abdomen limite d [id number] Routine Ultrasound 08/07/24 14:04 Completed Radiology Impressions Abdomen Ultrasound 08/07/24 14:04 IMPRESSION: 1. No acute sonographic findings or ab normalities. 2. Nonvisualization of the pancreas du e to bowel-gas. Laboratory Results WBC 8.52 10^3/uL (3.2 9-11.43) 08/06/24 10:03 RBC 4.30 10^6/uL (3.8 5-5.65) 08/06/24 10:03 Hgb 14.40 g/dL (11.27 -16.99) 08/06/24 10:03 Hct 42.7 % (37-53) 08/06/24 10:03 MCV 99.3 fl (82-101) 08/06/24 10:03 MCH 33.5 pg (27-33) H 08/06/24 10:03 MCHC 33.7 g/dL (30-55) 08/06/24 10:03 RDW 12.9 % (12.1-15.1 ) 08/06/24 10:03 Plt Count 339 10^3/cmm (157 -399) 08/06/24 10:03 MPV 9.3 fL (7.4-10.4) 08/06/24 10:03 Neut % (Auto) 63.9 % 08/06/24 10:03 Lymph % (Auto) 24.5 % 08/06/24 10:03 Lynn % (Auto) 8.7 % 08/06/24 10:03 Eos % (Auto) 1.4 % 08/06/24 10:03 Baso % (Auto) 0.8 % 08/06/24 10:03 Neut # (Auto) 5.44 10^3/uL (1.8 -7.7) 08/06/24 10:03 Lymph # (Auto) 2.1 10^3/uL (0.8- 4.8) 08/06/24 10:03 Lynn # (Auto) 0.7 10^3/uL (0.2- 0.9) 08/06/24 10:03 Eos # (Auto) 0.1 10^3/uL (0.0- 0.8) 08/06/24 10:03 Baso # (Auto) 0.1 10^3/uL (0.0- 0.1) 08/06/24 10:03 Nucleated RBC % (a uto) 0 % 08/06/24 10:03 Nucleated RBCs # 0.0 /100WBC 08/06/24 10:03 PT 13.10 SECONDS (12 .1-14.9) 08/06/24 10:03 INR 0.93 (0.8-1.2) 08/06/24 10:03 APTT 26.2 SECONDS (23. 9-36.7) 08/06/24 10:03 Sodium 138 mmol/L (136-1 45) 08/08/24 08:24 Potassium 4.6 mmol/L (3.5-5 .1) 08/08/24 08:24 Chloride 101 mmol/L (98-10 7) 08/08/24 08:24 Carbon Dioxide 27 mmol/L (22-29) 08/08/24 08:24 Anion Gap 14.6 (5-19) 08/08/24 08:24 BUN 13 mg/dL (8-23) 08/08/24 08:24 Creatinine 0.7 mg/dL (0.7-1. 2) 08/08/24 08:24 GFR Calculation 114.3 mL/min (90- 130) 08/08/24 08:24 Glucose 102 mg/dL (65-115 ) 08/08/24 08:24 Calculated Osmolal ity 286 mOsm/kg (285- 295) 08/08/24 08:24 Calcium 9.4 mg/dL (8.5-10 .5) 08/08/24 08:24 Phosphorus 3.2 mg/dL (2.5-4. 5) 08/06/24 10:03 Magnesium 1.9 mg/dL (1.7-2. 3) 08/06/24 10:03 Total Bilirubin 0.4 mg/dL (0.15-1 .2) 08/08/24 08:24 AST 59 U/L (0-40) H 08/08/24 08:24 ALT 165 U/L (0-41) H 08/08/24 08:24 Alkaline Phosphata se 55 U/L (40-130) 08/08/24 08:24 Total Protein 6.3 g/dL (6.6-8.7 ) L 08/08/24 08:24 Albumin 4.0 g/dL (3.5-5.2 ) 08/08/24 08:24 Globulin 2.3 g/dL (1.3-4.6 ) 08/08/24 08:24 Urine Color Yellow (Yellow) 08/05/24 23:10 Urine Appearance Clear (CLEAR) 08/05/24 23:10 Urine pH 6.5 (5-7) 08/05/24 23:10 Ur Specific Gravit y 1.018 (1.005-1.0 30) 08/05/24 23:10 Urine Protein Negative (Negati ve) 08/05/24 23:10 Urine Glucose (UA) Negative (Normal ) 08/05/24 23:10 Urine Ketones Negative (Negati ve) 08/05/24 23:10 Urine Blood Negative (Negati ve) 08/05/24 23:10 Urine Nitrate Negative (Negati ve) 08/05/24 23:10 Urine Bilirubin Negative (Negati ve) 08/05/24 23:10 Urine Urobilinogen 0.2 mg/dL (Negati ve) 08/05/24 23:10 Ur Leukocyte Georgiana ase Negative (Negati ve) 08/05/24 23:10 Urine RBC 0-2 /hpf (0-2) 08/05/24 23:10 Urine WBC 0-5 /hpf (0-5) 08/05/24 23:10 Ur Squamous Epith Cells 0-5 /hpf (0-5) 08/05/24 23:10 Amorphous Sediment Not Reportable 08/05/24 23:10 Urine Bacteria None seen /hpf (N ONE) 08/05/24 23:10 Hyaline Casts 0-4 /lpf H 08/05/24 23:10 Urine Opiates Scre en Negative ng/mL (N egative) 07/17/24 Unknown Ur Barbiturates Sc reen Negative ng/mL (N egative) 07/17/24 Unknown Ur Phencyclidine S crn Negative ng/mL (N egative) 07/17/24 Unknown Ur Amphetamines Sc reen Negative ng/mL (N egative) 07/17/24 Unknown U Benzodiazepines Scrn Negative ng/mL (N egative) 07/17/24 Unknown Urine Cocaine Scre en Negative ng/mL (N egative) 07/17/24 Unknown U Marijuana (THC) Screen Positive ng/mL (N egative) H 07/17/24 Unknown Hepatitis A IgM Ab Non-reactive (No nreactive) 08/08/24 08:24 Hep Bs Antigen Non-reactive (No nreactive) 08/08/24 08:24 Hep B Core IgM Ab Non-reactive (No nreactive) 08/08/24 08:24 Hepatitis C Antibo dy Non-reactive (No nreactive) 08/08/24 08:24 Vitals: Last Vital Signs Temp 97.6 F 08/12/24 13:22 Pulse 84 08/12/24 13:22 Resp 18 08/12/24 13:22 BP 123/72 08/12/24 13:22 Pulse Ox 96 08/12/24 13:22 O2 Del Method Room Air 08/12/24 06:00 Discharge Plan Discharge Patient Disposition: Home Condition: Stable Prescriptions: New Abilify Asimtufii 960 mg/3.2 mL suspension,extended rel syring 960 mg IM ONCE 60 Days Qty: 192 0RF Rx Instructions: Next Injection due 10/07/24 Eliquis 5 mg Tablet 10 mg PO BID@0900,2100 30 Days Qty: 120 0RF capsaicin 0.025 % Cream 1 applic topical QID PRN (Reason: Pain) 30 Days Qty: 25 1RF Discharge Orders: Discharge Order (Routine); Ordered 08/12/24 Ordered By: Grover Soni Referrals: Miriam Velarde MD [Hospitalist, Hematology & Oncology] - 1 week Referral Note: Patient had SVT, placed on anticoagulant Problems: Superficial phlebitis and thrombophlebitis of left leg Chalino Farrell MD [Referring] - 08/29/24 11:00 am Referral Note: Arrive 10:30am to complete paperwork Discharge Diet: Usual diet Discharge Activity: Resume usual activity Patient Instructions: Capsaicin (On the skin) (Axsain, Capsin, Diclofex DC, Tratamiento..., Aripiprazole (By mouth), Apixaban (By mouth), Lumateperone (By mouth) (Caplyta), Superficial Thrombophlebitis (ED), Psychotic Disorder (GEN), Opioid Safety Discharge Attestations NPU Time Spent in Discharge Care*: less than 30 min Specific Discharge Activities: Specific discharge activities: educating patient, discussing with case packer/social workers/dc planners and documenti ng/other paperwork Coding Level of Care Code Acute Code for Chg Fwd Diagnoses Acute psychosis F23 Mojgan F30.9
== END 2024-08-12 15:31 | disposition home or self-care (01) | DRG 885 ==
LOC: ER 18:12 → NP 18:19
PROVIDERS: Internal Medicine; Student in an Organized Health Care Education/Training Program; Admitting Provider Psychiatry & Neurology Psychiatry; Emergency Provider Emergency Medicine; Visit Provider Psychiatry & Neurology Psychiatry
DX: F23 Brief psychotic disorder (principal); E66.9 Obesity, unspecified; Z68.32 Body mass index [BMI] 32.0-32.9, adult; F30.2 Manic episode, severe with psychotic symptoms; I80.02 Phlebitis and thrombophlebitis of superficial vessels of left lower extremity; R74.01 Elevation of levels of liver transaminase levels; H61.23 Impacted cerumen, bilateral
CPT/HCPCS: 36415; 76705; 80053; 80074; 80306; 81001; 83735; 84100; 85025; 85610; 85730; 93306; 93970; 96372; 97150; 97165; 99285; J0515; J3486; J9999